=== PATIENT | male | born 1950 | race Caucasian/White ===

== ENCOUNTER 2016-03-24 17:57 | Inpatient (IN) | payer OTHER, MEDICARE ==
[~2016-03-24] VITALS: Ht 182.9 cm; Wt 90.2 kg
[2016-03-24 18:20] VITALS: BP 151/92; PULSE 78; TEMP 36.3; O2SAT 99; BMI 26.6
[2016-03-24] MEDS ORDERED: LEVO88TA3 PO (19:57)
[2016-03-24] MEDS ORDERED: TADA10TA PO (19:57)
[2016-03-24] MEDS ORDERED: MELATAB2 PO (19:57)
[2016-03-24] MEDS ORDERED: SIMV80TA5 PO (19:57)
[2016-03-24] MEDS ORDERED: ATV/1 PO (19:57)
[2016-03-24] MEDS ORDERED: HYDR-5688 PO (19:57)
[2016-03-24] MEDS ORDERED: MoRPHine SULFATE 2 MG/ML CARP IV PRN (20:00)
[2016-03-24] MEDS ORDERED: ALUMINUM/MAGNESIUM/SIMETH (MAALOX MAX) 30 ML UDC PO PRN (20:00)
[2016-03-24] MEDS ORDERED: ACETAMINOPHEN 325 MG TAB PO PRN (20:00)
[2016-03-24] MEDS ORDERED: PATIENT'S ALLERGY INFO NEEDS ENTERED SCH (20:15)
[2016-03-24 20:29] VITALS: BP 149/93; PULSE 74; TEMP 36.7; O2SAT 100
[2016-03-24] MEDS: OXYCODONE/ACETAMINOPHEN 5-325 TAB PO PRN (21:13)
[2016-03-24] MEDS: SIMVASTATIN 80 MG TAB PO SCH (21:27)
--- NOTE | 2016-03-24 22:05 | History and Physical ---
History & Physical Date & Time of Service: Mar 24, 2016 at 21:46 Chief Complaint: Lung Mass With Bone Met Primary Care Physician: Blas Calero D.O. History of Present Illness Source: patient, family, clinic records, hospital records This is a 66 year old male with PMH of HLD, hypothyroidism was sent over by Dr. Scales, oncology, for evaluation of a lung mass and likely metastatic disease to the bone. Patient had been seeing orthopedic surgery regarding clavicular and shoulder pain; had a CT scan performed showing lytic bone lesions of the left clavicle; CT chest was later performed showing a 3.2 x 1.8 cm left upper lobe spiculated mass as well as lytic lesions of multiple thoracic levels; bone scan performed showing increasing activity at the thoracolumbar and clavicular regions. Patient was sent over to get a bronchoscopy and tissue diagnosis as well as evaluation for his lytic lesions and T10 compression fracture. Patient states his main symptoms are the back pain, clavicular pain and he now noticed shallower breathing. Denies chest pain Social History Smoking Status: Unknown if Ever Smoked Multi-Drug Resistant Organisms History of MDRO: No Allergies Coded Allergies: No Known Allergies (Unverified , 03/24/16) Home Medications Scheduled Levothyroxine Sodium (Levothyroxine Sodium), 1 TAB PO DAILY Lorazepam (Ativan), 1 MG PO Q6H Melatonin (Melatonin Maximum Strengt), 1 TAB PO HS Simvastatin (Zocor), 1 TAB PO DAILY Tadalafil (Cialis), 10 MG PO UD Scheduled PRN Hydrocodone/Acetaminophen 5MG/325MG ([place] 5MG/325MG), 1 TABLET PO Q6 PRN for Pain Review of Systems Constitutional: No chills, No fatigue, No fever, No sweats, No weakness, No weight loss Eyes: No worsening of vision ENT: No hearing loss Respiratory: + cough, + dyspnea at rest, + shortness of breath, No hemoptysis, No sputum, No wheezing Cardiovascular: No chest pain Abdomen: No diarrhea, No nausea, No pain, No vomiting Musculoskeletal: + joint pain (back, clavicles), + muscle pain Genitourinary - Male: No dysuria, No hematuria, No urinary frequency, No urinary urgency Neurologic: No balance problems, No memory loss, No numbness/tingling, No vertigo Psychiatric: No depression symptoms Hematologic / Lymphatic: No abnormal bleeding/bruising Integumentary: No rash Allergic / Immunologic: No environmental allergies, No seasonal allergies Physical Exam Vital Signs Date Time Temp Pulse Resp B/P Pulse Ox O2 Delivery O2 Flow Rate FiO2 03/24/16 20:29 36.7 74 20 149/93 100 Room Air 03/24/16 18:20 36.3 78 20 151/92 99 Room Air General Appearance: + mild distress Head: normocephalic, atraumatic Eyes: normal inspection ENT: hearing grossly normal Respiratory/Chest: lungs clear, + respiratory distress (mild respiratory distress), + accessory muscle use Cardiovascular: regular rate, rhythm, no edema, no murmur Abdomen/GI: normal bowel sounds, non tender, soft Extremities/Musculoskelatal: normal inspection, no calf tenderness, no pedal edema Neurologic/Psych: no motor/sensory deficits, alert, oriented x 3, + pertinent finding (slightly anxious) Skin: normal color Lymphatic: no adenopathy Diagnostics Laboratory Results Results Past 24 Hours Test 03/24/16 19:58 Range/Units Diagnostic Radiology CT scan done as outpatient showing spiculated mass of left upper lobe and lytics lesions of the thoracic spine. Impression Assessment and Plan This is a 66 year old male with PMH of HLD, hypothyroidism was sent over by Dr. Scales, oncology, for evaluation of a lung mass and likely metastatic disease to the bone. Spiculated Left Upper Lung Lobe Mass -->patient with CT done for clavicular/shoulder pain, incidental finding -->CT chest done as outpatient shows this mass -->sent over by oncology for bronch and tissue biopsy/diagnosis -->CTS consulted - Dr. Berg for further evaluation -->O2 as needed, as patient had some accessory muscle use/respiratory distress - saturating well Thoracic Spine Lytic Lesions T10 Compression Fracture -->likely metastatic from above -->will consult orthopedic surgery, Dr. Arzate -->morphine PRN for pain -->hold off on MRI until evaluated by ortho HLD -->continue statin Hypothyroidism -->cont. synthroid DVT ppx -->SCDs - poss. bronchoscopy in AM FULL CODE Advanced Directives Existing Advance Directive: Yes Existing Living Will: Yes Existing Power of Frame Repairer: Yes VTE Prophylaxis VTE Risk Assessment Done? Y/N: Yes Risk Level: High
[2016-03-24 22:09] LABS: BASO % 0.3 %; BASO ABS # 0.02 K/uL (0-0.2); COMPLETE YES; EOS % 1.6 %; HEMATOCRIT 37.4 % (42-52); IG% 0.1 %; MEAN CELL VOLUME 82.6 fL (80-100); MEAN CORPUSCULAR HEMOGLOBIN 28.7 pg (25-34); MEAN CORPUSCULAR HGB CONC 34.8 g/dl (32-36); MEAN PLATELET VOLUME 9.6 fL (7.4-10.4); MONO % 8.7 %; NEUT % 67.3 %; PLATELET COUNT 274 K/uL (130-400); RED BLOOD COUNT 4.53 M/uL (4.7-6.1); WHITE BLOOD COUNT 6.82 K/uL (4.8-10.8)
[2016-03-24 22:20] LABS: PARTIAL THROMBOPLASTIN RATIO 1.1; PROTHROMBIN TIME (PATIENT) 11.1 SECONDS (9.0-12.0)
[2016-03-24 22:31] LABS: BUN/CREATININE RATIO 18.4 (10-20); CALCIUM 9.4 mg/dl (8.5-10.1); CREATININE 1.1 mg/dl (0.60-1.40); MAGNESIUM 2.1 mg/dl (1.8-2.4); POTASSIUM 3.6 mmol/L (3.5-5.1)
[2016-03-24 22:34] LABS: ALB/GLOB RATIO 0.8 (0.9-2)
[2016-03-24] MEDS: LORAZEPAM 1 MG TAB PO PRN (23:05)
[2016-03-25] VITALS (8 sets, daily range): BP systolic 127–152; BP diastolic 80–88; PULSE 66–84; TEMP 36.4–36.9; O2SAT 95–100
[2016-03-25] MEDS ORDERED: KETOROLAC TROMETHAMINE 15 MG/ML VIAL IV. STA (00:36)
[2016-03-25] MEDS: LEVOTHYROXINE 88 MCG TAB PO SCH (05:58)
[2016-03-25 06:06] LABS: HEMATOCRIT 35.5 % (42-52); MEAN CELL VOLUME 84.3 fL (80-100); MEAN CORPUSCULAR HEMOGLOBIN 28.5 pg (25-34); MEAN CORPUSCULAR HGB CONC 33.8 g/dl (32-36); MEAN PLATELET VOLUME 9.8 fL (7.4-10.4); PLATELET COUNT 263 K/uL (130-400); RED BLOOD COUNT 4.21 M/uL (4.7-6.1); WHITE BLOOD COUNT 5.97 K/uL (4.8-10.8)
[2016-03-25 06:49] LABS: BUN/CREATININE RATIO 16.2 (10-20); CALCIUM 9.2 mg/dl (8.5-10.1); CREATININE 1.1 mg/dl (0.60-1.40); MAGNESIUM 2.2 mg/dl (1.8-2.4); POTASSIUM 3.9 mmol/L (3.5-5.1)
[2016-03-25 06:59] LABS: THYROID STIMULATING HORMONE 4.25 uIu/ml (0.300-4.500)
[2016-03-25] MEDS: MoRPHine SULFATE 4 MG/ML 1 ML CARP\\VIAL IV PRN ×3 (08:39→21:59)
--- NOTE | 2016-03-25 10:12 | Clinical Documentation Query ---
CLINICAL DOCUMENTATION QUERY Ms. 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 Clinical Indicators: 66 yo male presenting with CT results showing spiculated mass of left upper lobe and lytics lesions of the thoracic spine. Treatment: consult thoracic surgery and orthopedics, O2 support prn, CT and MRI of thoracic spine, Risk Factors: age, smoking history is unknown Please clarify and document your clinical opinion in the progress notes and discharge summary. Terms such as "probable", "suspected", "likely", "questionable", "possible", or "still to be ruled out" are acceptable. IF IN AGREEMENT, YOU MUST DOCUMENT ABOVE DIAGNOSTIC STATEMENT IN DAILY PROGRESS NOTES AND DISCHARGE SUMMARY. This document is not part of the patient's record. Thank You, Jackie Moscoso RN [phone]
--- NOTE | 2016-03-25 10:15 | Clinical Documentation Query ---
CLINICAL DOCUMENTATION QUERY Dr. 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 Clinical Indicators: 66 yo male presenting with CT results showing spiculated mass of left upper lobe and lytics lesions of the thoracic spine. Treatment: consult thoracic surgery and orthopedics, O2 support prn, CT and MRI of thoracic spine, Risk Factors: age, smoking history is unknown Please clarify and document your clinical opinion in the progress notes and discharge summary. Terms such as "probable", "suspected", "likely", "questionable", "possible", or "still to be ruled out" are acceptable. IF IN AGREEMENT, YOU MUST DOCUMENT ABOVE DIAGNOSTIC STATEMENT IN DAILY PROGRESS NOTES AND DISCHARGE SUMMARY. This document is not part of the patient's record. Thank You, Jackie Moscoso RN [phone]
[2016-03-25] MEDS ORDERED: LORAZEPAM 2 MG/ML 1 ML VIAL IV SCH (10:30)
[2016-03-25] MEDS ORDERED: OPTIRAY 320 IV PRN (11:00)
[2016-03-25] MEDS ORDERED: LORAZEPAM INJ 0.5 MG in SYRINGE 0.75 ML IV SCH (11:45)
--- NOTE | 2016-03-25 12:39 | SURGICAL CONSULTATION ---
DATE OF CONSULTATION: 03/25/2016 REASON FOR CONSULTATION: Left upper lobe mass. HISTORY OF PRESENT ILLNESS: Jose David Urban is a 66-year-old male who has a history of cigarette smoking in the distant past, who was working out this past summer and he noted pain in his left shoulder. This waxed and waned until he finally ended up getting a CT scan when he sought attention from Dr. Brant Comer. This showed a lytic lesion and he is being worked up. He has become a bit more short of breath and was admitted to the hospital by his oncologist, Dr. Jac Scales. The patient has a left upper lobe mass noted on CT scan without mediastinal adenopathy, but has diffuse bony lesions suggestive of metastatic disease. In addition, his T4 vertebral body is markedly involved to the fact that it may be unstable. I had a long talk with the patient and his here at the bedside this morning. The patient has had no weight loss. He has had no hemoptysis, no productive cough. He has had no night sweats. He does have diffuse bone pain. He is normally followed by Dr. Blas Calero. PAST MEDICAL HISTORY: 1. History of cigarette smoking in the past, but quit many years ago. 2. Hypothyroidism. 3. Hypercholesterolemia. PAST SURGICAL HISTORY: 1. Left inguinal hernia repair 2008. 2. Bilateral cataract extractions with lens implants 2010. 3. Excision of left flank lipoma 2 weeks ago. MEDICATIONS: (AT HOME): 1. Synthroid. 2. Cialis. 3. Zocor. 4. Melatonin. 5. Hydrocodone. ALLERGIES: Known drug allergies. SOCIAL HISTORY: The patient is originally from [place], [place]. He worked in [employer] and then got a degree from [employer], and then worked in several different stokes, all white collar. 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 The patient lives with his . He does occasionally smoke marijuana. He has not smoked cigarettes for many years. FAMILY MEDICAL HISTORY: The patient has 3 children. He had a 16-year-old daughter who was tragically killed while jogging along a street down in [place] in 1994. The other children are healthy. REVIEW OF SYSTEMS: The patient's weight has been stable. He has had no night sweats. He really does not have a productive cough, although he has noted some mild increased dyspnea. His big complaint is pain in his back and pain along his right side. He has pain in his left shoulder and across the sternum. He denies GI or difficulties. He does take Cialis for erectile dysfunction. He has had no hemoptysis, hematochezia or hemetemesis. Denies nausea or vomiting. He has had no skin breakdown. He has had no visual or auditory symptoms. He has no joint effusions or peripheral edema. PHYSICAL EXAMINATION: GENERAL: This is a well-developed, well-nourished white male who stands 6 feet tall and weighs 194 pounds. HEENT: His extraocular movements are intact. His pupils are equal, round and reactive. Sclerae are anicteric. He has no nasolabial flattening. Teeth are in good repair. His tongue is midline. NECK: He has no supraclavicular or cervical lymphadenopathy, neck vein distention, thyromegaly or carotid bruits. I detect no axillary adenopathy, although he is tender in his right axilla. LUNGS: Grossly clear. He has no wheezing or rales. HEART: Has a regular rate and rhythm of his heart. ABDOMEN: Soft, nontender. He has a well-healed left inguinal hernia incision. It appears that he has a right lower quadrant incision also. He has no evidence of hernia. He has good femoral pulses. He has good peripheral pulses. He has no joint effusions. He has no peripheral edema. NEUROLOGIC: He is completely intact. He has no focal deficits. Cranial nerves II-XII are intact. He is alert and oriented. Data reviewed and CT scan and he has multiple lytic lesions in the left clavicle, sternum, ribs and spine, and a spiculated mass in his left upper lobe. ASSESSMENT AND PLAN: Involvement of T4 with probable metastatic disease. He also has a spiculated mass in his left upper lobe. We need a tissue diagnosis in order to treat him. I am going to offer him a navigational bronchoscopy tomorrow on 03/26/2016. It is important to note he really has no lymphadenopathy, which is a bit unusual for metastatic lung cancer. I will discuss this case with Dr. Arzate, who will be seeing him from a spine surgery standpoint. ARMANDO
[2016-03-25] MEDS: OXYCODONE/ACETAMINOPHEN 5-325 TAB PO PRN ×2 (14:33→19:46)
--- NOTE | 2016-03-25 15:51 | Progress Note ---
Internal Med Progress Note Date of Service: Mar 25, 2016. Provider Documentation: SUBJECTIVE: Patient is seen and examined at bedside. He complains of back pain in the thoracic region. Also states having intermittent cough and SOB on exertion. Denies any chest pain, fever, chills. OBJECTIVE: Vital Signs-as noted below General Appearance: Moderately built and nourished. Anxious Head: normocephalic, atraumatic Eyes: normal inspection ENT: hearing grossly normal Respiratory/Chest: lungs clear to auscultation, no accessory muscle use Cardiovascular: regular rate, rhythm, no edema, no murmur Abdomen/GI: normal bowel sounds, non tender, soft Extremities/Musculoskelatal: normal inspection, no calf tenderness, no pedal edema Neurologic/Psych: no motor/sensory deficits, alert, oriented x 3, anxious Spine: Mild tenderness in thoracic region Skin: normal color Lymphatic: no adenopathy Lab data as noted below. ASSESSMENT & PLAN: Patient is a 66 Yr old male with PMH of Hyperlipidemia, hypothyroidism, former smoker was a direct admit from oncology office (Dr.Nilesh Scales) for evaluation of lung mass and likely metastatic disease to the bone. Patient was evaluated by orthopedic surgery for clavicular and shoulder pain as outpatient and CT scan performed showing lytic bone lesions of the left clavicle and eft upper lobe spiculated mass with lytic lesions of multiple thoracic levels. Bone scan showed findings suggestive of metastatic bone disease. Patient complained of back and clavicular pain associated with shallow breathing. Patient denied any weight loss, change in appetite, hemoptysis, productive cough, night sweats but did complain of diffuse bone pain. 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: Former smoker quit at age of 23 CT scan shows multiple lytic lesions in left clavicle, sternum, ribs and spine Also left upper lobe lung mass seen severe central canal narrowing at T4 level Planned for bronchoscopy tomorrow Pain Control, Oxygen support CT surgery, Spine Surgery and radiation oncology consulted Follow up MRI thoracic spine Hyperlipidemia Continue statin Hypothyroidism Continue Levothyroxine DVT px SCDs for now Vital Signs: Date Time Temp Pulse Resp B/P Pulse Ox O2 Delivery O2 Flow Rate FiO2 03/25/16 12:11 36.5 84 20 129/85 100 Room Air 03/25/16 08:30 95 Room Air 03/25/16 07:47 36.6 73 18 131/84 95 Room Air 03/25/16 04:35 36.6 74 20 127/80 99 Room Air 03/25/16 01:13 Room Air 03/25/16 00:39 36.9 66 18 143/81 97 Room Air 03/25/16 00:00 Room Air 03/24/16 20:29 36.7 74 20 149/93 100 Room Air 03/24/16 18:20 36.3 78 20 151/92 99 Room Air Lab Results: Results Past 24 Hours Test 03/24/16 21:58 03/25/16 05:20 Range/Units White Blood Count 6.82 5.97 4.8-10.8 K/uL Red Blood Count 4.53 4.21 4.7-6.1 M/uL Hemoglobin 13.0 12.0 14.0-18.0 g/dL Hematocrit 37.4 35.5 42-52 % Mean Corpuscular Volume 82.6 84.3 80-100 fL Mean Corpuscular Hemoglobin 28.7 28.5 25-34 pg Mean Corpuscular Hemoglobin Concent 34.8 33.8 32-36 g/dl Platelet Count 274 263 130-400 K/uL Mean Platelet Volume 9.6 9.8 7.4-10.4 fL Neutrophils (%) (Auto) 67.3 % Lymphocytes (%) (Auto) 22.0 % Monocytes (%) (Auto) 8.7 % Eosinophils (%) (Auto) 1.6 % Basophils (%) (Auto) 0.3 % Neutrophils # (Auto) 4.59 1.4-6.5 K/uL Lymphocytes # (Auto) 1.50 1.2-3.4 K/uL Monocytes # (Auto) 0.59 0.11-0.59 K/uL Eosinophils # (Auto) 0.11 0-0.5 K/uL Basophils # (Auto) 0.02 0-0.2 K/uL RDW Standard Deviation 41.9 43.2 36.4-46.3 fL RDW Coefficient of Variation 13.9 14.0 11.5-14.5 % Immature Granulocyte % (Auto) 0.1 % Immature Granulocyte # (Auto) 0.01 0.00-0.02 K/uL Prothrombin Time 11.1 9.0-12.0 SECONDS Prothromb Time International Ratio 1.0 0.9-1.1 Activated Partial Thromboplast Time 27.5 21.0-31.0 SECONDS Partial Thromboplastin Ratio 1.1 Sodium Level 138 140 136-145 mmol/L Potassium Level 3.6 3.9 3.5-5.1 mmol/L Chloride Level 103 104 98-107 mmol/L Carbon Dioxide Level 24 28 21-32 mmol/L Anion Gap 11.0 8.0 3-11 mmol/L Blood Urea Nitrogen 20 18 7-18 mg/dl Creatinine 1.10 1.10 0.60-1.40 mg/dl Est Creatinine Clear Calc Drug Dose 23.9 23.9 ml/min Estimated GFR () 79.5 79.5 Estimated GFR (Non- 68.6 68.6 BUN/Creatinine Ratio 18.4 16.2 10-20 Random Glucose 137 84 70-99 mg/dl Calcium Level 9.4 9.2 8.5-10.1 mg/dl Magnesium Level 2.1 2.2 1.8-2.4 mg/dl Total Bilirubin 0.8 0.2-1 mg/dl Aspartate Amino Transf (AST/SGOT) 46 15-37 U/L Alanine Aminotransferase (ALT/SGPT) 35 12-78 U/L Alkaline Phosphatase 294 45-117 U/L Total Protein 7.9 6.4-8.2 gm/dl Albumin 3.4 3.4-5.0 gm/dl Globulin 4.5 2.5-4.0 gm/dl Albumin/Globulin Ratio 0.8 0.9-2 Thyroid Stimulating Hormone (TSH) 4.250 0.300-4.500 uIu/ml
--- NOTE | 2016-03-25 15:57 | Anesthesiology Progress Note ---
Anesthesia Progress Note Date of Service Mar 25, 2016. Progress Notes This is a 66 y/o w male w/lung tumor and bone metastases presenting for a navigational bronchoscopy and biopsy.PMHx is also sig. for Hyperlipidemia,anemia ,GIL/SOB andT10 compression Fx presumably secondary to bone metastases.Pt quit smoking cigarettes in 1972.Discussed anesthesia w/ pt ,risks vs benefits,all questions answered. Informed consent obtained.
[2016-03-25] MEDS: DOCUSATE SODIUM 100 MG CAP PO PRN ×2 (16:00→23:59)
--- NOTE | 2016-03-25 16:42 | Radiation Oncology Consult ---
Radiation Oncology Consult Date / Reason Mar 25, 2016. Physicians Primary Care Provider: Dr. Blas Calero Medical Oncologist: Dr. Jac Scales Radiation Oncologist: Dr. Vipin Scales Surgeon: Dr. Lino Berg Other Providers: Dr. Griffiths - Neurosurgery ([facility] [place]) Dr. Arzate - Orthopedic Surgery Diagnosis (1) Lung mass Stage: IV Permanent Comment: Probable metastatic lung cancer, biopsy pending Last Edited By: Vipin Scales on Mar 25, 2016 14:55 History of Present Illness I am seeing Mr. Urban in consultation at the request of Dr. Yo and BEAN Cortez. The patient's was present at bedside. ECOG PS: 0 Mr. Urban is a pleasant 66-year-old gentleman with a remote smoking history who recently presented with upper back pain. The patient was initially evaluated by orthopedic surgery and was undergoing physical therapy. Eventually the back pain was getting significantly worse in the patient did have imaging studies which did reveal a pulmonary mass and potential bony metastatic disease in the thoracic spine (as per patient, imaging studies and reports unavailable at the time of consultation). The patient was going to have the workup completed as an outpatient however he was recommended to proceed to the emergency room at [facility]. The patient did have a CT chest, abdomen, pelvis scan and a bone scan on 03/19/2016 and the results revealed: Chest - IMPRESSION: 1. A 3.2 x 1.8 cm mass within the left lung apex consistent with a primary bronchus malignancy. There are few additional subcentimeter bilateral upper lobe nodules which may represent metastases. 2. Multiple tiny scattered subpleural nodules seen throughout the lungs measuring between 1 and 2 mm. These are indeterminate and could be related to a chronic interstitial process rather than metastatic disease. This bears watching on future examinations. 3. Extensive lytic lesions throughout the visualized osseous structures as described above consistent with metastatic disease. This includes multiple lytic soft tissue masses within the spine with associated soft tissue epidural extension at the T4, T5 and T8 levels.. At the T4 level, there is a 4.2 x 3.8 cm mass along the right side of the vertebral body which results in moderate to severe central canal narrowing. This likely results in cord compression. 4. A thrombosed left upper lobe segmental pulmonary artery which extends to the mass. This could represent bland thrombus, tumor thrombus, or less likely a pulmonary embolism. 5. A 6 x 2 cm soft tissue mass within the subcutaneous fat of the left lateral chest wall. This contains a small focus of gas and may represent a recently biopsied chest wall lesion. Clinical correlation recommended. Abdomen/Pelvis - IMPRESSION: 1. Findings of diffuse bony metastatic disease 2. Several small abdominal and pelvic nodes none of which exceed 7 mm of uncertain significance 3. Mild wall thickening of the cecum and proximal ascending colon with colonoscopy suggested. 4. 2.2 cm left hepatic lobe cyst. Bone Scan - IMPRESSION: Diffuse bony metastatic change. The patient is scheduled to undergo a bronchoscopy with biopsy by Dr. Berg to confirm the diagnosis of lung cancer. The patient will then subsequently be transferred to [facility] and will be taken to the operating room by Dr. Griffiths for a surgical decompression and fixation of the thoracic spine. We were asked to evaluate the patient for consideration of adjuvant radiation therapy to the spine following surgery. Overall, the patient is doing relatively okay. He does have significant upper thoracic spine pain. He denies any significant focal neurologic deficits at this point. He denies any headaches. He has no other complaints. Social History Smoking Status: Never Smoker Hx Tobacco Use In Past Year?: No Do You Dip or Chew Tobacco: No Hx Alcohol Use: Yes (rarely, wine) Hx Substance Use : No Allergies Coded Allergies: No Known Allergies (Unverified , 03/24/16) Home Medications Scheduled Levothyroxine Sodium (Levothyroxine Sodium), 1 TAB PO DAILY Lorazepam (Ativan), 1 MG PO Q6H Melatonin (Melatonin Maximum Strengt), 1 TAB PO HS Simvastatin (Zocor), 1 TAB PO DAILY Tadalafil (Cialis), 10 MG PO UD Scheduled PRN Hydrocodone/Acetaminophen 5MG/325MG ([place] 5MG/325MG), 1 TABLET PO Q6 PRN for Pain Review of Systems Ear/Hearing: Ear Side: Bilateral Hearing Ability: Normal Hearing Aid: None Edema: Present?: No Pain Management Side: Bilateral Patient Preferred Pain Scale: 0 - 10 Initial Pain Intensity: 6.0 Pain Description: Pressure, Aching, Throbbing Physical Exam Height: 6 (Feet) (Inches) 182.9 (Centimeters) 1.82 (Meters) Weight: 194 (Pounds) 0.1 (Ounces) 26.300 (Kilograms) 64768.000 (Grams) Date Time Temp Pulse Resp B/P Pulse Ox O2 Delivery O2 Flow Rate FiO2 03/25/16 12:11 36.5 84 20 129/85 100 Room Air 03/25/16 08:30 95 Room Air 03/25/16 07:47 36.6 73 18 131/84 95 Room Air 03/25/16 04:35 36.6 74 20 127/80 99 Room Air 03/25/16 01:13 Room Air 03/25/16 00:39 36.9 66 18 143/81 97 Room Air 03/25/16 00:00 Room Air 03/24/16 20:29 36.7 74 20 149/93 100 Room Air 03/24/16 18:20 36.3 78 20 151/92 99 Room Air General Appearance: WD/WN, no apparent distress Head: normocephalic Eyes: normal inspection ENT: normal ENT inspection Neck: supple, no adenopathy Respiratory/Chest: chest non-tender, lungs clear, normal breath sounds, no respiratory distress Cardiovascular: regular rate, rhythm, no edema, no gallop, no JVD Abdomen/GI: normal bowel sounds, non tender, soft, no organomegaly, no pulsatile mass Extremities: normal inspection, no calf tenderness, normal capillary refill, no pedal edema, normal range of motion Neurologic/Psych: 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 Imaging Imaging studies: were reviewed Imaging Comments Results included in the HPI Assessment & Recommendations Mr. Urban is a a 66-year-old gentleman with a remote smoking history who now presents with a primary lung mass and bony metastatic disease; specifically, the patient has metastatic disease involving the thoracic spine that is going to lead to spinal cord compression. The patient will undergo a bronchoscopy and biopsy by Dr. Berg today to confirm the diagnosis of metastatic lung cancer. Subsequently, the patient will be transferred to [facility] and will undergo a surgical decompression and spinal fixation of the thoracic spine by Dr. Griffiths. The patient will then be seen by medical oncology, Dr. Jac Scales. We were asked to evaluate the patient for consideration of adjuvant radiation therapy to the thoracic spine following surgical decompression. In general, we would recommend adjuvant radiation therapy to the thoracic spine in order to treat microscopic residual disease that is not removed at the time of surgery; we did explain to the patient that there has been previous studies showing a survival benefit to the combination of both surgical resection and adjuvant radiation therapy. We did also further discuss the standard management for presumed metastatic lung cancer which includes systemic chemotherapy underneath the supervision of Dr. Jac Scales. I did also briefly discussed with the patient that we could potentially treat other areas that are causing him symptomatic pain or if there is an impending pathologic fracture. The patient would be in agreement to this treatment plan and we will wait for a referral back toward department when the patient has recovered from surgery from either neurosurgery at [facility] or from medical oncology through Dr. Jac Scales. We have explained the indications, alternatives, benefits, risks and side effects of radiation therapy. We have explained the most common side effects including but are not limited to skin erythema, skin break down, hair loss, fibrosis, adhesion development, radiation pneumonitis, rib and bone fracture, heart failure and heart disease, esophagitis, bowel obstruction, urinary symptoms, thyroid disorders, mucositis, nauesea, vomiting, diarrhea, anemia, fatigue and development of secondary malignancy. We also discussed that male patients may have issues with erections (potency) and infertility issues depending on their age and area of treatment. We have explained the CT simulation process and treatment planning. We explained what to expect before, during and after treatment on a regular basis. The patient understands and would be willing to consent to treatment. The patient and family had multiple questions which were answered to their full satisfaction. Thank you for allowing us to participate in the care of this patient. This chart was completed in part utilizing [employer] Speech Voice Recognition software. Attempts were made to minimize the grammatical errors, random word insertions, pronoun errors and incomplete sentences. Any formal questions or concerns about the content, text or information contained within the body of this dictation should be directly addressed to the provider for clarification. Vipin Scales MD Department of Radiation Oncology [facility] Total Time In Consultation I spent 30 minutes examining and counseling the patient. I spent 15 minutes completing this note. Copy To Steven Griffiths M.D.; Adriana Saucedo ., BEAN; Jac Scales M.D.; Blas Calero D.OSd; Lino Berg,
--- NOTE | 2016-03-25 16:46 | DIAGNOSTIC IMAGING REPORT ---
CT THORACIC SPINE WITH CT DOSE: 959.97 mGy.cm CLINICAL HISTORY: lung mass with angelica mets TECHNIQUE: Helical images were acquired in the transverse plane. The study was performed following administration of 120 cc of Optiray 320. Sagittal and coronal reformatted images were acquired COMPARISON STUDY: Whole-body bone scan dated 03/19/2016, CT scan of the chest dated 03/19/2016 FINDINGS: There is a 3 cm spiculated left upper lobe pulmonary mass, consistent with a primary bronchogenic carcinoma. There is extensive lytic bone disease, with involvement of every thoracic vertebral body or posterior elements. There is also involvement of the L1 vertebral body. At the T4 level, there is extensive destruction of the posterior vertebral body posterior elements and right lateral mass. There is extensive epidural tumor with secondary cord compression. There is epidural disease with canal narrowing at the T5 level as well. At the T8 level, there is mild anterior epidural tumor. There are innumerable bilateral tiny pulmonary nodules IMPRESSION: 1. 3 cm spiculated left upper lobe pulmonary mass, consistent with a lung carcinoma 2. Extensive lytic bony metastasis involving every thoracic vertebra, as well as the L1 vertebra. 3. Extensive epidural disease at the L4-L5 level with secondary cord compression. The L4 mass measures 4.6 x 3.8 cm. 4. Mild anterior vertebral disease the T8 level. 5. Innumerable bilateral tiny pulmonary nodules Electronically signed by: Tc Alvarez M.D. 03/25/2016 4:44 PM Dictated Date/Time: 03/25/2016 4:34 PM
--- NOTE | 2016-03-25 19:25 | DIAGNOSTIC IMAGING REPORT ---
MRI THE THORACIC SPINE WITHOUT A WITH GADOLINIUM CLINICAL HISTORY: Lung mass with bony metastasis COMPARISON STUDY: CT scan dated 03/25/2016 FINDINGS: Imaging was performed in the sagittal and axial planes before and after the administration of 3 cc of intravenous Gadavist. There are geographic areas of marrow replacement involving every thoracic vertebra, as well as the L1-L5 vertebra, and S1 and S3 vertebra.. At the T4-5 level, there is epidural extension of neoplasm. The tumor measures approximately 4.3 x 3.6 cm. There is secondary canal narrowing. The residual canal measures 11 x 10 mm. There is also mild spread of neoplasm into the anterior epidural space at the T8 level. IMPRESSION: 1. Extensive metastatic disease 2. Large metastatic deposit at the T3 and T4 levels with epidural extension and secondary spinal canal narrowing 3. Mild epidural extension at the T8 level. 4. 3 cm left upper lobe pulmonary mass consistent with neoplasm Electronically signed by: Tc Alvarez M.D. 03/25/2016 7:24 PM Dictated Date/Time: 03/25/2016 7:18 PM
[2016-03-25] MEDS: SIMVASTATIN 80 MG TAB PO SCH (19:46)
[2016-03-26] VITALS (8 sets, daily range): BP systolic 113–142; BP diastolic 74–88; PULSE 67–88; TEMP 36.3–36.7; O2SAT 94–100; BMI 27.0
[2016-03-26] MEDS: LORAZEPAM 1 MG TAB PO PRN
[2016-03-26] MEDS: ONDANSETRON INJ 2 MG/ML 2 ML VIAL IV PRN ×2 (00:59→08:53)
[2016-03-26] MEDS: OXYCODONE/ACETAMINOPHEN 5-325 TAB PO PRN (01:33)
[2016-03-26] MEDS: LEVOTHYROXINE 88 MCG TAB PO SCH (06:09)
[2016-03-26 06:16] LABS: BASO % 0.4 %; BASO ABS # 0.02 K/uL (0-0.2); COMPLETE YES; EOS % 2.5 %; HEMATOCRIT 35.4 % (42-52); LYMPH % 25.8 %; LYMPH ABS # 1.36 K/uL (1.2-3.4); MEAN CELL VOLUME 83.5 fL (80-100); MEAN CORPUSCULAR HEMOGLOBIN 28.5 pg (25-34); MEAN CORPUSCULAR HGB CONC 34.2 g/dl (32-36); MEAN PLATELET VOLUME 9.8 fL (7.4-10.4); MONO % 13.3 %; PLATELET COUNT 270 K/uL (130-400); RED BLOOD COUNT 4.24 M/uL (4.7-6.1); WHITE BLOOD COUNT 5.28 K/uL (4.8-10.8)
[2016-03-26 06:43] LABS: BUN/CREATININE RATIO 17.3 (10-20); CALCIUM 9.2 mg/dl (8.5-10.1); CREATININE 1.1 mg/dl (0.60-1.40); POTASSIUM 4.2 mmol/L (3.5-5.1)
[2016-03-26] MEDS ORDERED: KETOROLAC TROMETHAMINE 15 MG/ML VIAL ONE (09:25)
[2016-03-26] MEDS ORDERED: NURSING VERBAL MED ORDER ONE (09:30)
[2016-03-26] MEDS ORDERED: PROPOFOL IV EMULSION 10 MG/ML 20 ML VIAL IV ONE (15:06)
[2016-03-26] MEDS ORDERED: FENTANYL CITRATE INJ 50 MCG/1 ML 2 ML VIAL ONE (15:06)
[2016-03-26] MEDS ORDERED: ONDANSETRON INJ 2 MG/ML 2 ML VIAL ONE (15:06)
[2016-03-26] MEDS ORDERED: NEOSTIGMINE METHYLSULFATE 5 MG/5 ML SYR ONE (15:06)
[2016-03-26] MEDS ORDERED: GLYCOPYRROLATE INJ 0.2 MG/ML VIAL ONE ×2 (15:06→16:13)
[2016-03-26] MEDS ORDERED: DEXAMETHASONE SOD INJ 4 MG/ML VIAL ONE ×2 (15:06→16:44)
[2016-03-26] MEDS ORDERED: MIDAZOLAM HCL 1 MG/ML 2ML VIAL ONE ×2 (15:06→17:58)
[2016-03-26] MEDS ORDERED: ROCURONIUM BROMIDE 10 MG/ML 5 ML VIAL ONE (15:06)
[2016-03-26] MEDS ORDERED: LIDOCAINE HCL 2% 2 ML VIAL (20MG/ML) ONE (15:06)
--- NOTE | 2016-03-26 15:26 | History & Physical Bridge Note ---
H&P Re-Evaluation Bridge Note: I have examined the patient, reviewed the History & Physical and in the interval since the performance of the History & Physical I have noted the following changes of clinical significance: No changes noted
--- NOTE | 2016-03-26 15:39 | Progress Note ---
Internal Med Progress Note Date of Service: Mar 26, 2016. Provider Documentation: SUBJECTIVE: Patient is seen and examined at bedside. States his back pain is controlled. Denies any cough, SOB,chest pain. OBJECTIVE: Vital Signs-as noted below General Appearance: Moderately built and nourished. Head: normocephalic, atraumatic Eyes: normal inspection ENT: hearing grossly normal Respiratory/Chest: lungs clear to auscultation, no accessory muscle use Cardiovascular: regular rate, rhythm, no edema, no murmur Abdomen/GI: normal bowel sounds, non tender, soft Extremities/Musculoskelatal: normal inspection, no calf tenderness, no pedal edema Neurologic/Psych: no motor/sensory deficits, alert, oriented x 3, anxious Spine: Mild tenderness in thoracic region Skin: normal color Lymphatic: no adenopathy Lab data as noted below. ASSESSMENT & PLAN: Patient is a 66 Yr old male with PMH of Hyperlipidemia, hypothyroidism, former smoker was a direct admit from oncology office (Dr.Nilesh Scales) for evaluation of lung mass and likely metastatic disease to the bone. Patient was evaluated by orthopedic surgery for clavicular and shoulder pain as outpatient and CT scan performed showing lytic bone lesions of the left clavicle and eft upper lobe spiculated mass with lytic lesions of multiple thoracic levels. Bone scan showed findings suggestive of metastatic bone disease. Patient complained of back and clavicular pain associated with shallow breathing. Patient denied any weight loss, change in appetite, hemoptysis, productive cough, night sweats but did complain of diffuse bone pain. 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: Former smoker quit at age of 23 CT scan shows multiple lytic lesions in left clavicle, sternum, ribs and spine Also left upper lobe lung mass seen severe central canal narrowing at T4 level Planned for bronchoscopy today Pain Control, Oxygen support CT surgery, Spine Surgery and radiation oncology consulted MRI thoracic spine: Extensive metastatic disease, Large metastatic deposit at T3-T4 with epidural extension, secondary spinal canal narrowing Minimize Narcotic use secondary to constipation Will consult Heme onchology Await for recommendations- to see if patient is a candidate for surgery Hyperlipidemia Continue statin Hypothyroidism Continue Levothyroxine DVT px SCDs for now Vital Signs: Date Time Temp Pulse Resp B/P Pulse Ox O2 Delivery O2 Flow Rate FiO2 03/26/16 12:24 36.3 76 16 120/78 96 Room Air 03/26/16 12:21 36.3 76 16 120/78 96 Room Air 03/26/16 08:26 36.6 79 16 113/74 96 Room Air 03/26/16 08:20 Room Air 03/26/16 00:15 36.6 67 18 135/82 97 Room Air 03/26/16 00:00 Room Air 03/25/16 20:21 36.4 69 20 152/85 99 Room Air 03/25/16 20:00 Room Air 03/25/16 16:03 36.5 67 20 135/88 96 Room Air 03/25/16 16:00 96 Room Air Lab Results: Results Past 24 Hours Test 03/26/16 05:13 Range/Units White Blood Count 5.28 4.8-10.8 K/uL Red Blood Count 4.24 4.7-6.1 M/uL Hemoglobin 12.1 14.0-18.0 g/dL Hematocrit 35.4 42-52 % Mean Corpuscular Volume 83.5 80-100 fL Mean Corpuscular Hemoglobin 28.5 25-34 pg Mean Corpuscular Hemoglobin Concent 34.2 32-36 g/dl Platelet Count 270 130-400 K/uL Mean Platelet Volume 9.8 7.4-10.4 fL Neutrophils (%) (Auto) 58.0 % Lymphocytes (%) (Auto) 25.8 % Monocytes (%) (Auto) 13.3 % Eosinophils (%) (Auto) 2.5 % Basophils (%) (Auto) 0.4 % Neutrophils # (Auto) 3.07 1.4-6.5 K/uL Lymphocytes # (Auto) 1.36 1.2-3.4 K/uL Monocytes # (Auto) 0.70 0.11-0.59 K/uL Eosinophils # (Auto) 0.13 0-0.5 K/uL Basophils # (Auto) 0.02 0-0.2 K/uL RDW Standard Deviation 42.3 36.4-46.3 fL RDW Coefficient of Variation 13.8 11.5-14.5 % Immature Granulocyte % (Auto) 0.0 % Immature Granulocyte # (Auto) 0.00 0.00-0.02 K/uL Sodium Level 138 136-145 mmol/L Potassium Level 4.2 3.5-5.1 mmol/L Chloride Level 105 98-107 mmol/L Carbon Dioxide Level 25 21-32 mmol/L Anion Gap 8.0 3-11 mmol/L Blood Urea Nitrogen 19 7-18 mg/dl Creatinine 1.10 0.60-1.40 mg/dl Est Creatinine Clear Calc Drug Dose 70.6 ml/min Estimated GFR () 79.5 Estimated GFR (Non- 68.6 BUN/Creatinine Ratio 17.3 10-20 Random Glucose 87 70-99 mg/dl Calcium Level 9.2 8.5-10.1 mg/dl MRI Thoracic Spine: IMPRESSION: 1. Extensive metastatic disease 2. Large metastatic deposit at the T3 and T4 levels with epidural extension and secondary spinal canal narrowing 3. Mild epidural extension at the T8 level. 4. 3 cm left upper lobe pulmonary mass consistent with neoplasm
[2016-03-26] MEDS ORDERED: CLINDAMYCIN PHOS 150 MG/ML 2 ML VIAL ONE (15:51)
[2016-03-26] MEDS ORDERED: ALBUT/IPRATROP 3MG/0.5MG NEB 3 ML VIAL INH PRN (16:45)
--- NOTE | 2016-03-26 16:50 | DIAGNOSTIC IMAGING REPORT ---
INTRAOPERATIVE CHEST X-RAY CLINICAL HISTORY: NAVIGATIONAL BRONCH COMPARISON STUDY: Chest CT dated 03/19/2016 FINDINGS: There is a bronchoscopic catheter projected over a left upper lobe pulmonary mass. 91 seconds of fluoroscopic time was utilized. IMPRESSION: There is a bronchoscopic catheter projected over a left upper lobe pulmonary mass Electronically signed by: Tc Alvarez M.D. 03/26/2016 4:48 PM Dictated Date/Time: 03/26/2016 4:47 PM
--- NOTE | 2016-03-26 17:00 | DIAGNOSTIC IMAGING REPORT ---
CHEST ONE VIEW PORTABLE CLINICAL HISTORY: Postop bronchoscopic biopsy COMPARISON STUDY: Chest CT dated 03/19/2016 FINDINGS: There is a left lower lobe pulmonary mass. No pneumothorax is visualized. There is no failure. There is no lobar consolidation. There is no pneumothorax.[ IMPRESSION: Left upper lobe pulmonary mass. No evidence of pneumothorax status post biopsy Electronically signed by: Tc Alvarez M.D. 03/26/2016 4:58 PM Dictated Date/Time: 03/26/2016 4:57 PM
--- NOTE | 2016-03-26 17:54 | Anesthesiology Progress Note ---
Anesthesia Post Op Note Date & Time Mar 26, 2016 at 17:54 Vital Signs Pain Intensity: 0 Vital Signs Past 12 Hours Date Time Temp Pulse Resp B/P Pulse Ox O2 Delivery O2 Flow Rate FiO2 03/26/16 17:50 36.4 71 16 132/79 100 Nasal Cannula 2 03/26/16 17:40 36.4 67 16 131/79 100 Nasal Cannula 2 03/26/16 17:30 36.4 76 16 136/76 100 Nasal Cannula 2 03/26/16 17:20 36.4 68 21 127/83 100 Nasal Cannula 2 03/26/16 17:18 36.4 67 18 124/78 100 Nasal Cannula 2 03/26/16 17:10 67 14 124/74 100 Nasal Cannula 2 03/26/16 17:00 66 14 118/74 100 Mask 10 03/26/16 16:50 66 14 122/72 100 Mask 10 03/26/16 16:40 69 24 124/74 100 Mask 10 03/26/16 16:33 36.4 73 20 126/71 100 Mask 10 03/26/16 12:24 36.3 76 16 120/78 96 Room Air 03/26/16 12:21 36.3 76 16 120/78 96 Room Air 03/26/16 08:26 36.6 79 16 113/74 96 Room Air 03/26/16 08:20 Room Air Notes Mental Status: alert / awake / arousable, participated in evaluation Pt Amnestic to Procedure: Yes Nausea / Vomiting: adequately controlled Pain: adequately controlled Airway Patency, RR, SpO2: stable & adequate BP & HR: stable & adequate Hydration State: stable & adequate Anesthetic Complications: no major complications apparent
[2016-03-26] MEDS: POLYETHYLENE (MIRALAX) 17 GM PACK PO PRN ×2 (20:35)
[2016-03-26] MEDS: MAGNESIUM HYDROXIDE SUSP 30 ML UDC PO PRN (20:36)
[2016-03-26] MEDS: KETOROLAC TROMETHAMINE 15 MG/ML VIAL IV. PRN (20:39)
[2016-03-26] MEDS: SIMVASTATIN 80 MG TAB PO SCH (20:40)
[2016-03-26] MEDS ORDERED: DOCUSATE SODIUM 100 MG CAP PO PRN (20:45)
[2016-03-27] VITALS (7 sets, daily range): BP systolic 119–159; BP diastolic 73–85; PULSE 69–84; TEMP 36.2–36.7; O2SAT 94–100; BMI 27.2
[2016-03-27] MEDS ORDERED: SENNA 8.6 MG TAB PO ONE (00:30)
[2016-03-27] MEDS ORDERED: BISACODYL 5 MG TABEC PO ONE (00:30)
[2016-03-27] MEDS: KETOROLAC TROMETHAMINE 15 MG/ML VIAL IV. PRN ×4 (03:37→22:13)
[2016-03-27] MEDS: OXYCODONE/ACETAMINOPHEN 5-325 TAB PO PRN (05:37)
[2016-03-27 05:53] LABS: COMPLETE YES; HEMATOCRIT 35.2 % (42-52); IG% 0.3 %; LYMPH % 10.9 %; LYMPH ABS # 0.63 K/uL (1.2-3.4); MEAN CELL VOLUME 83.4 fL (80-100); MEAN CORPUSCULAR HGB CONC 33.5 g/dl (32-36); MEAN PLATELET VOLUME 9.9 fL (7.4-10.4); MONO % 3.6 %; NEUT % 85.2 %; PLATELET COUNT 290 K/uL (130-400); RED BLOOD COUNT 4.22 M/uL (4.7-6.1); WHITE BLOOD COUNT 5.77 K/uL (4.8-10.8)
[2016-03-27 06:21] LABS: BUN/CREATININE RATIO 14.7 (10-20); CALCIUM 9.1 mg/dl (8.5-10.1); CREATININE 1.2 mg/dl (0.60-1.40); POTASSIUM 4.2 mmol/L (3.5-5.1)
[2016-03-27] MEDS: LEVOTHYROXINE 88 MCG TAB PO SCH (06:54)
--- NOTE | 2016-03-27 10:03 | SURGERY PROGRESS NOTE ---
DATE: 03/27/2016 Mr. Urban is seen 1 day status post navigational bronchoscopy with biopsy of the left upper lobe mass. He has widely metastatic osseous lesions, especially in his spine. He was complaining of intense choking and inability to breathe in his neck and throat area after the procedure; however, I gave him a dose of steroids and this settled down. He is fine today and this has essentially resolved. He is sitting up in bed. He is on room air. He is comfortable except for the pain in his back from his metastases. I had a long talk with Mr. Urban, explained to him that stage IV lung disease with multiple bony metastases has an extremely poor prognosis. He understands. I discussed the pathology with Dr. Alfonso yesterday. It appears we do have a nonsmall cell lung carcinoma, but we do not have much to work with. I am hopeful that our cell blocks and especially our forceps biopsies will give us enough tissue to do molecular analysis. [facility]
[2016-03-27] MEDS: DOCUSATE SODIUM/SENNA 50/8.6MG TAB PO SCH ×2 (11:51→20:17)
--- NOTE | 2016-03-27 16:07 | Progress Note ---
Internal Med Progress Note Date of Service: Mar 27, 2016. Provider Documentation: SUBJECTIVE: Patient is seen and examined at bedside. Reports persistent back pain. Denies any SOB,chest pain. OBJECTIVE: Vital Signs-as noted below General Appearance: Moderately built and nourished. Head: normocephalic, atraumatic Eyes: normal inspection ENT: hearing grossly normal Respiratory/Chest: lungs clear to auscultation, no accessory muscle use Cardiovascular: regular rate, rhythm, no edema, no murmur Abdomen/GI: normal bowel sounds, non tender, soft Extremities/Musculoskelatal: normal inspection, no calf tenderness, no pedal edema Neurologic/Psych: no motor/sensory deficits, alert, oriented x 3, anxious Spine: Mild tenderness in thoracic region Skin: normal color Lymphatic: no adenopathy Lab data as noted below. ASSESSMENT & PLAN: Patient is a 66 Yr old male with PMH of Hyperlipidemia, hypothyroidism, former smoker was a direct admit from oncology office (Dr.Nilesh Scales) for evaluation of lung mass and likely metastatic disease to the bone. Patient was evaluated by orthopedic surgery for clavicular and shoulder pain as outpatient and CT scan performed showing lytic bone lesions of the left clavicle and eft upper lobe spiculated mass with lytic lesions of multiple thoracic levels. Bone scan showed findings suggestive of metastatic bone disease. Patient complained of back and clavicular pain associated with shallow breathing. Patient denied any weight loss, change in appetite, hemoptysis, productive cough, night sweats but did complain of diffuse bone pain. 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: Former smoker quit at age of 23 CT scan shows multiple lytic lesions in left clavicle, sternum, ribs and spine Also left upper lobe lung mass seen severe central canal narrowing at T4 level S/P bronchoscopy and left upper lobe biopsy Repeat CXR: No pneumothorax Pain Control, Oxygen support, bowel regimen for constipation CT surgery, Spine Surgery and radiation oncology following MRI thoracic spine: Extensive metastatic disease, Large metastatic deposit at T3-T4 with epidural extension, secondary spinal canal narrowing Minimize Narcotic use secondary to constipation Hemeonchology consulted Await for recommendations- to see if patient is a candidate for surgery Poor Prognosis Follow up pathology reports Hyperlipidemia Continue statin Hypothyroidism Continue Levothyroxine DVT px Lovenox SQ Vital Signs: Date Time Temp Pulse Resp B/P Pulse Ox O2 Delivery O2 Flow Rate FiO2 03/27/16 15:01 36.6 75 16 159/77 98 Room Air 03/27/16 08:50 Room Air 03/27/16 07:51 97 Room Air 03/27/16 07:42 36.6 78 16 120/81 97 Room Air 03/27/16 02:45 36.7 84 18 119/73 94 Room Air 03/26/16 23:05 36.7 88 18 129/88 96 Room Air 03/26/16 19:53 36.4 81 18 137/80 94 Room Air 03/26/16 18:55 85 18 142/87 100 Room Air 03/26/16 18:40 100 Room Air 03/26/16 18:40 36.3 74 18 127/81 100 Room Air 2.0 03/26/16 17:50 36.4 71 16 132/79 100 Nasal Cannula 2 03/26/16 17:40 36.4 67 16 131/79 100 Nasal Cannula 2 03/26/16 17:30 36.4 76 16 136/76 100 Nasal Cannula 2 03/26/16 17:20 36.4 68 21 127/83 100 Nasal Cannula 2 03/26/16 17:18 36.4 67 18 124/78 100 Nasal Cannula 2 03/26/16 17:10 67 14 124/74 100 Nasal Cannula 2 03/26/16 17:00 66 14 118/74 100 Mask 10 03/26/16 16:50 66 14 122/72 100 Mask 10 03/26/16 16:40 69 24 124/74 100 Mask 10 03/26/16 16:33 36.4 73 20 126/71 100 Mask 10 Lab Results: Results Past 24 Hours Test 03/27/16 05:11 Range/Units White Blood Count 5.77 4.8-10.8 K/uL Red Blood Count 4.22 4.7-6.1 M/uL Hemoglobin 11.8 14.0-18.0 g/dL Hematocrit 35.2 42-52 % Mean Corpuscular Volume 83.4 80-100 fL Mean Corpuscular Hemoglobin 28.0 25-34 pg Mean Corpuscular Hemoglobin Concent 33.5 32-36 g/dl Platelet Count 290 130-400 K/uL Mean Platelet Volume 9.9 7.4-10.4 fL Neutrophils (%) (Auto) 85.2 % Lymphocytes (%) (Auto) 10.9 % Monocytes (%) (Auto) 3.6 % Eosinophils (%) (Auto) 0.0 % Basophils (%) (Auto) 0.0 % Neutrophils # (Auto) 4.91 1.4-6.5 K/uL Lymphocytes # (Auto) 0.63 1.2-3.4 K/uL Monocytes # (Auto) 0.21 0.11-0.59 K/uL Eosinophils # (Auto) 0.00 0-0.5 K/uL Basophils # (Auto) 0.00 0-0.2 K/uL RDW Standard Deviation 41.5 36.4-46.3 fL RDW Coefficient of Variation 13.7 11.5-14.5 % Immature Granulocyte % (Auto) 0.3 % Immature Granulocyte # (Auto) 0.02 0.00-0.02 K/uL Sodium Level 136 136-145 mmol/L Potassium Level 4.2 3.5-5.1 mmol/L Chloride Level 103 98-107 mmol/L Carbon Dioxide Level 24 21-32 mmol/L Anion Gap 9.0 3-11 mmol/L Blood Urea Nitrogen 18 7-18 mg/dl Creatinine 1.20 0.60-1.40 mg/dl Est Creatinine Clear Calc Drug Dose 64.7 ml/min Estimated GFR () 71.6 Estimated GFR (Non- 61.8 BUN/Creatinine Ratio 14.7 10-20 Random Glucose 150 70-99 mg/dl Calcium Level 9.1 8.5-10.1 mg/dl
[2016-03-27] MEDS: SIMVASTATIN 80 MG TAB PO SCH (20:17)
[2016-03-27] MEDS: POLYETHYLENE (MIRALAX) 17 GM PACK PO PRN (20:21)
[2016-03-27] MEDS: LORAZEPAM 1 MG TAB PO PRN (20:21)
[2016-03-27] MEDS: MAGNESIUM HYDROXIDE SUSP 30 ML UDC PO PRN (20:22)
[2016-03-28] VITALS (7 sets, daily range): BP systolic 118–132; BP diastolic 66–88; PULSE 62–84; TEMP 36.2–36.6; O2SAT 94–99; BMI 27.8
[2016-03-28] MEDS: KETOROLAC TROMETHAMINE 15 MG/ML VIAL IV. PRN ×4 (03:55→23:34)
[2016-03-28 05:58] LABS: BASO % 0.3 %; BASO ABS # 0.02 K/uL (0-0.2); COMPLETE YES; HEMATOCRIT 33.2 % (42-52); IG% 0.1 %; LYMPH % 30.3 %; LYMPH ABS # 2.36 K/uL (1.2-3.4); MEAN CELL VOLUME 83.2 fL (80-100); MEAN CORPUSCULAR HEMOGLOBIN 28.3 pg (25-34); MEAN PLATELET VOLUME 9.9 fL (7.4-10.4); MONO % 12.7 %; NEUT % 55.6 %; PLATELET COUNT 268 K/uL (130-400); RED BLOOD COUNT 3.99 M/uL (4.7-6.1)
[2016-03-28 06:34] LABS: BUN/CREATININE RATIO 19.8 (10-20); CALCIUM 8.6 mg/dl (8.5-10.1); CREATININE 1.1 mg/dl (0.60-1.40); POTASSIUM 4.2 mmol/L (3.5-5.1)
[2016-03-28] MEDS: LEVOTHYROXINE 88 MCG TAB PO SCH (06:51)
[2016-03-28] MEDS: DOCUSATE SODIUM/SENNA 50/8.6MG TAB PO SCH ×2 (08:27→19:42)
[2016-03-28] MEDS: ENOXAPARIN 40 MG/0.4 ML SYR SQ SCH (08:28)
[2016-03-28] MEDS ORDERED: NURSING VERBAL MED ORDER ONE (10:00)
[2016-03-28] MEDS ORDERED: MAGNESIUM CITRATE 296 ML/BTL PO ONE (10:00)
--- NOTE | 2016-03-28 12:06 | Progress Note ---
Internal Med Progress Note Date of Service: Mar 28, 2016. Provider Documentation: SUBJECTIVE: Patient is seen and examined at bedside. Constipation resolved. Has persistent back pain. Denies any SOB,chest pain. Family at bedside. OBJECTIVE: Vital Signs-as noted below General Appearance: Moderately built and nourished. Head: normocephalic, atraumatic Eyes: normal inspection ENT: hearing grossly normal Respiratory/Chest: lungs clear to auscultation, no accessory muscle use Cardiovascular: regular rate, rhythm, no edema, no murmur Abdomen/GI: normal bowel sounds, non tender, soft Extremities/Musculoskelatal: normal inspection, no calf tenderness, no pedal edema Neurologic/Psych: no motor/sensory deficits, alert, oriented x 3, anxious Spine: Mild tenderness in thoracic region Skin: normal color Lymphatic: no adenopathy Lab data as noted below. ASSESSMENT & PLAN: Patient is a 66 Yr old male with PMH of Hyperlipidemia, hypothyroidism, former smoker was a direct admit from oncology office (Dr.Nilesh Scales) for evaluation of lung mass and likely metastatic disease to the bone. Patient was evaluated by orthopedic surgery for clavicular and shoulder pain as outpatient and CT scan performed showing lytic bone lesions of the left clavicle and eft upper lobe spiculated mass with lytic lesions of multiple thoracic levels. Bone scan showed findings suggestive of metastatic bone disease. Patient complained of back and clavicular pain associated with shallow breathing. Patient denied any weight loss, change in appetite, hemoptysis, productive cough, night sweats but did complain of diffuse bone pain. 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: Former smoker quit at age of 23 CT scan shows multiple lytic lesions in left clavicle, sternum, ribs and spine Also left upper lobe lung mass seen severe central canal narrowing at T4 level S/P bronchoscopy and left upper lobe biopsy Repeat CXR: No pneumothorax Pain Control, Oxygen support, bowel regimen for constipation CT surgery, Spine Surgery and radiation oncology following MRI thoracic spine: Extensive metastatic disease, Large metastatic deposit at T3-T4 with epidural extension, secondary spinal canal narrowing Minimize Narcotic use secondary to constipation Heme onchology consult pending Poor Prognosis Pathology reports pending Hyperlipidemia Continue statin Hypothyroidism Continue Levothyroxine DVT px Lovenox SQ Vital Signs: Date Time Temp Pulse Resp B/P Pulse Ox O2 Delivery O2 Flow Rate FiO2 03/28/16 08:30 Room Air 03/28/16 07:57 36.2 74 16 129/88 98 Room Air 03/28/16 03:45 36.6 84 16 118/68 96 Room Air 03/28/16 01:05 Room Air 03/27/16 23:13 36.2 69 14 140/84 96 Room Air 03/27/16 20:01 36.5 71 18 130/85 100 Room Air 03/27/16 20:00 Room Air 03/27/16 16:00 98 Room Air 03/27/16 15:01 36.6 75 16 159/77 98 Room Air Lab Results: Results Past 24 Hours Test 03/28/16 05:31 Range/Units White Blood Count 7.80 4.8-10.8 K/uL Red Blood Count 3.99 4.7-6.1 M/uL Hemoglobin 11.3 14.0-18.0 g/dL Hematocrit 33.2 42-52 % Mean Corpuscular Volume 83.2 80-100 fL Mean Corpuscular Hemoglobin 28.3 25-34 pg Mean Corpuscular Hemoglobin Concent 34.0 32-36 g/dl Platelet Count 268 130-400 K/uL Mean Platelet Volume 9.9 7.4-10.4 fL Neutrophils (%) (Auto) 55.6 % Lymphocytes (%) (Auto) 30.3 % Monocytes (%) (Auto) 12.7 % Eosinophils (%) (Auto) 1.0 % Basophils (%) (Auto) 0.3 % Neutrophils # (Auto) 4.34 1.4-6.5 K/uL Lymphocytes # (Auto) 2.36 1.2-3.4 K/uL Monocytes # (Auto) 0.99 0.11-0.59 K/uL Eosinophils # (Auto) 0.08 0-0.5 K/uL Basophils # (Auto) 0.02 0-0.2 K/uL RDW Standard Deviation 42.4 36.4-46.3 fL RDW Coefficient of Variation 13.9 11.5-14.5 % Immature Granulocyte % (Auto) 0.1 % Immature Granulocyte # (Auto) 0.01 0.00-0.02 K/uL Sodium Level 138 136-145 mmol/L Potassium Level 4.2 3.5-5.1 mmol/L Chloride Level 104 98-107 mmol/L Carbon Dioxide Level 26 21-32 mmol/L Anion Gap 8.0 3-11 mmol/L Blood Urea Nitrogen 22 7-18 mg/dl Creatinine 1.10 0.60-1.40 mg/dl Est Creatinine Clear Calc Drug Dose 70.6 ml/min Estimated GFR () 79.5 Estimated GFR (Non- 68.6 BUN/Creatinine Ratio 19.8 10-20 Random Glucose 92 70-99 mg/dl Calcium Level 8.6 8.5-10.1 mg/dl
[2016-03-28] MEDS: OXYCODONE/ACETAMINOPHEN 5-325 TAB PO PRN (18:52)
[2016-03-28] MEDS: MoRPHine SULFATE 4 MG/ML 1 ML CARP\\VIAL IV PRN (21:30)
[2016-03-28] MEDS: SIMVASTATIN 80 MG TAB PO SCH (21:33)
[2016-03-29] MEDS: MoRPHine SULFATE 4 MG/ML 1 ML CARP\\VIAL IV PRN ×5 (01:20→21:36)
[2016-03-29 04:00] VITALS: BP 133/81; PULSE 62; TEMP 36.3; O2SAT 95
[2016-03-29] MEDS: LEVOTHYROXINE 88 MCG TAB PO SCH (05:39)
[2016-03-29 06:46] VITALS: BMI 27.0
[2016-03-29 06:49] LABS: BUN/CREATININE RATIO 16.4 (10-20); CALCIUM 8.8 mg/dl (8.5-10.1); CREATININE 1.1 mg/dl (0.60-1.40); POTASSIUM 4.1 mmol/L (3.5-5.1)
--- NOTE | 2016-03-29 08:05 | Anesthesiology Progress Note ---
Anesthesia Post Op Note Date & Time Mar 29, 2016 at 08:04 Vital Signs Vital Signs Past 12 Hours Date Time Temp Pulse Resp B/P Pulse Ox O2 Delivery O2 Flow Rate FiO2 03/29/16 04:00 36.3 62 16 133/81 95 Room Air 03/28/16 23:59 94 Room Air 03/28/16 23:54 36.5 62 20 127/66 94 Room Air Notes Mental Status: alert / awake / arousable, participated in evaluation Pt Amnestic to Procedure: Yes Nausea / Vomiting: adequately controlled Pain: adequately controlled Airway Patency, RR, SpO2: stable & adequate BP & HR: stable & adequate Hydration State: stable & adequate Anesthetic Complications: no major complications apparent
[2016-03-29 08:27] VITALS: BP 126/80; PULSE 59; TEMP 36.3; O2SAT 98
[2016-03-29] MEDS: KETOROLAC TROMETHAMINE 15 MG/ML VIAL IV. PRN (08:28)
[2016-03-29] MEDS: ONDANSETRON INJ 2 MG/ML 2 ML VIAL IV PRN (08:28)
[2016-03-29] MEDS: ENOXAPARIN 40 MG/0.4 ML SYR SQ SCH (08:32)
[2016-03-29] MEDS: DOCUSATE SODIUM/SENNA 50/8.6MG TAB PO SCH ×2 (08:32→19:37)
--- NOTE | 2016-03-29 11:34 | Progress Note ---
Internal Med Progress Note Date of Service: Mar 29, 2016. Provider Documentation: SUBJECTIVE: Patient is seen and examined at bedside. States having persistent back pain which is controlled with meds. Denies any SOB,chest pain. Denies weakness, numbness, bowel/bladder incontinence. OBJECTIVE: Vital Signs-as noted below General Appearance: Moderately built and nourished. Head: normocephalic, atraumatic Eyes: normal inspection ENT: hearing grossly normal Respiratory/Chest: lungs clear to auscultation, no accessory muscle use Cardiovascular: regular rate, rhythm, no edema, no murmur Abdomen/GI: normal bowel sounds, non tender, soft Extremities/Musculoskelatal: normal inspection, no calf tenderness, no pedal edema Neurologic/Psych: no motor/sensory deficits, alert, oriented x 3, anxious Spine: Mild tenderness in thoracic region Skin: normal color Lymphatic: no adenopathy Lab data as noted below. ASSESSMENT & PLAN: Patient is a 66 Yr old male with PMH of Hyperlipidemia, hypothyroidism, former smoker was a direct admit from oncology office (Dr.Nilesh Scales) for evaluation of lung mass and likely metastatic disease to the bone. Patient was evaluated by orthopedic surgery for clavicular and shoulder pain as outpatient and CT scan performed showing lytic bone lesions of the left clavicle and eft upper lobe spiculated mass with lytic lesions of multiple thoracic levels. Bone scan showed findings suggestive of metastatic bone disease. Patient complained of back and clavicular pain associated with shallow breathing. Patient denied any weight loss, change in appetite, hemoptysis, productive cough, night sweats but did complain of diffuse bone pain. 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: Former smoker quit at age of 23 CT scan shows multiple lytic lesions in left clavicle, sternum, ribs and spine Also left upper lobe lung mass seen severe central canal narrowing at T4 level S/P bronchoscopy and left upper lobe biopsy Repeat CXR: No pneumothorax Pain Control, Oxygen support, bowel regimen for constipation CT surgery, Spine Surgery and radiation oncology following MRI thoracic spine: Extensive metastatic disease, Large metastatic deposit at T3-T4 with epidural extension, secondary spinal canal narrowing Minimize Narcotic use secondary to constipation Heme oncology consulted Poor Prognosis Pathology reports pending Patient contemplating to have second opinion from [facility] for possible surgery Hyperlipidemia Continue statin Hypothyroidism Continue Levothyroxine DVT px Lovenox SQ Vital Signs: Date Time Temp Pulse Resp B/P Pulse Ox O2 Delivery O2 Flow Rate FiO2 03/29/16 08:27 36.3 59 16 126/80 98 Room Air 03/29/16 08:20 Room Air 03/29/16 04:00 36.3 62 16 133/81 95 Room Air 03/28/16 23:59 94 Room Air 03/28/16 23:54 36.5 62 20 127/66 94 Room Air 03/28/16 19:57 36.6 74 16 132/82 95 Room Air 03/28/16 15:30 Room Air 03/28/16 15:04 36.5 73 16 130/84 99 Room Air 03/28/16 12:01 36.5 79 20 126/84 98 Lab Results: Results Past 24 Hours Test 03/29/16 05:22 Range/Units Sodium Level 139 136-145 mmol/L Potassium Level 4.1 3.5-5.1 mmol/L Chloride Level 103 98-107 mmol/L Carbon Dioxide Level 27 21-32 mmol/L Anion Gap 9.0 3-11 mmol/L Blood Urea Nitrogen 18 7-18 mg/dl Creatinine 1.10 0.60-1.40 mg/dl Est Creatinine Clear Calc Drug Dose 70.6 ml/min Estimated GFR () 79.5 Estimated GFR (Non- 68.6 BUN/Creatinine Ratio 16.4 10-20 Random Glucose 82 70-99 mg/dl Calcium Level 8.8 8.5-10.1 mg/dl
[2016-03-29 11:40] VITALS: BP 132/67; PULSE 64; TEMP 36.5; O2SAT 99
--- NOTE | 2016-03-29 12:47 | ORTHOPEDIC CONSULTATION ---
DATE OF CONSULTATION: 03/26/2016 CHIEF COMPLAINT: Back pain. HISTORY OF PRESENT ILLNESS: A very pleasant 66-year-old male that presents to the hospital with thoracic back pain. A CAT scan, as well as MRI of the thoracolumbar region does demonstrate significant metastatic disease, most intense of which is at T4 with significant canal encroachment. The patient at this time has denied any neurologic symptoms at least affecting the lower extremities; however, he does have some radicular type armpit discomfort on the right, undoubtedly associated with the T4 metastatic disease and growth into the canal and neural foramen. I had a long discussion with this patient and his , reviewing his imaging findings, and recommendations. This included an outside consultation with Dr. Aly Griffiths at [facility]. I spoke with him personally as I reviewed his films. PLAN: At this time, at least in our hands, we did not feel that surgery was in his best interest. To debulk the tumor and destabilize around the tumor with rods and screws or an interbody construct, it would be quite challenging in light of the extent of the metastatic disease involving almost every bone throughout the thoracolumbar spine. This is relayed in detail with the patient. He understands and agrees. At this time, it is our recommendation to seek further information regarding chemotherapy or radiation care for his issues. I did emphasize that he is at risk for neurologic decline if he were to strained himself in any capacity. I have asked that he not involve lifting greater than 5-10 pounds, ambulation only. For this reason, there has been discussion regarding transportation. He would be at risk if even a modest fender peoples type of an accident of having more of a catastrophic result than the average individual in light of his significant pathologic spine involvement.
[2016-03-29 15:27] VITALS: BP 138/84; PULSE 71; TEMP 36.6; O2SAT 99
--- NOTE | 2016-03-29 19:11 | Medical Consult ---
Consultation Date of Consultation: Mar 29, 2016. Attending Physician: Shekhar oY MD Reason for Consultation: Stage IV lung cancer with diffuse metastatic disease to bones, newly diagnosed in 02/2016. History of Present Illness Mr. Urban is a 66 yo male new to consulting oncology service. He was sent to the emergency room on 03/24/[address] Scales after he reviewed the patient 's medical records due to a significant lesion at T4 causing cord compression. The patient states that he initially sought medical care when he had significant left clavicular and shoulder pain. He was partaking in physical therapy for about 6 weeks (02/03-03/05), when he decided that the pain was not significantly improving and that he should return to orthopedics and have further evaluation for his symptoms. The patient reports that x-rays of his clavicle in shoulder on the left side were obtained, but these are not available for review. Apparently there were findings concerning for metastatic disease, which led to a CT of the chest on 03/16/2016, detailed below ; a left upper lobe mass as well as diffuse metastatic disease were identified. Subsequently, on 03/19/2016 the patient had a bone scan, CT of the chest, abdomen and pelvis with contrast. The bone scan confirmed diffuse axial and appendicular skeleton metastases, as well as the medial left femoral condyle. The CT of the chest revealed a large lesion at T4 causing spinal cord compression. No liver or adrenal metastatic disease were identified. A few small subcentimeter intra-abdominal lymph nodes were identified, of undetermined significance. See below for detailed account of these exams. The patient had an urgent referral to Dr. Scales in Oncology, which was planned for 03/31/2016. However, Dr. Scales reviewed the records on 03/24/2016 and due to the concern for spinal cord compression at T4, the patient was called in directed immediately to the emergency room. He was then admitted to [facility]. CT of the thoracic spine was obtained on 03/25/2016 , which again confirmed a 3 cm spiculated left upper lobe pulmonary mass, consistent with primary bronchogenic carcinoma. Extensive lytic bone disease, with involvement of every thoracic vertebral body or pursed air elements. Also vomit of the L1 vertebral body. At the T4 level there is extensive destruction of the posterior vertebral body, posterior elements and right lateral mass with extensive epidural tumor causing secondary cord compression. Mass measuring 4.6 x 3.8 cm. There is epidural disease within the canal narrowing at the T5 level to. At T8, mild anterior epidural tumor. Innumerable bilateral tiny pulmonary nodules. MRI of the thoracic spine from 03/25/2016 revealed geographic areas of marrow replacement involving a recent rested vertebra, as well as the L1 through L5 vertebra and S1 an S3 vertebra. At the T4-5 level, there is epidural extension of neoplasm, measuring approximately 4.3 x 3.6 cm. Secondary canal narrowing noted ; residual canal measuring 11 x 10 mm. Mild spite of neoplasm into the anterior epidural space at T8 level. Bronchoscopy was performed by Dr. Berg on 03/26/2016. Left upper lobe bronchial brushing and FNA positive for malignant cells consistent with adenocarcinoma. ALK, ROS1, EGFR and PD L1 are pending at this time. Bronchial biopsy of left upper lobe nondiagnostic for carcinoma. [facility] Neurosurgery, Dr. Griffiths, was consult id on the case to see if the patient could be transferred to [facility] for palliative decompressive surgery at the T4/5 level. Per the patient, Dr. Griffiths did not feel the patient was a surgical candidate. Radiation oncology was also consulted ; the plan was for surgical decompression to be accomplished with follow-up palliative radiation to the area. The patient and his have initiated contact with [facility] ; Dr. Alvarado is the primary physician contact at this institution. The patient would like to be directly transfer to [facility]; however, the plan is to go to a satellite location in [place] this Tuesday to meet with a interdisciplinary team regarding treatment in his case. Additional history obtained from the patient at bedside. The patient reports that his left clavicular /shoulder pain and spine pain are well controlled with morphine injection every 4 hours as needed. He states that he was on Vicodin prior to admission after a lipoma from his chest wall was removed. Therefore, during this administration he developed significant constipation for which he was taking stool softener and MiraLax without improvement. He states yesterday he received magnesium citrate and he had a large bowel movement. He reports a good appetite and has not had nausea or vomiting. He does note dyspnea with minor exertion, but no cough. He has no headache, dizziness or vision changes. Social History Smoking Status: Former Smoker Marital Status: Housing Status: lives with family Allergies Coded Allergies: No Known Allergies (Unverified , 03/24/16) Current Inpatient Medications Current Inpatient Medications Medications (Trade) Dose Ordered Sig/[place] Route Start Time Stop Time Status Last Admin Dose Admin Acetaminophen (Tylenol Tab) 650 mg Q4H PRN PO 03/24/16 20:00 04/23/16 19:59 Al Hydrox/Mg Hydrox/Simethicone (Maalox Max Susp) 15 ml Q4H PRN PO 03/24/16 20:00 04/23/16 19:59 Magnesium Hydroxide (Milk Of Magnesia Susp) 30 ml Q6H PRN PO 03/24/16 20:00 04/23/16 19:59 03/27/16 20:22 30 ML Polyethylene (Miralax Powder Packet) 17 gm DAILY PRN PO 03/24/16 20:00 04/23/16 19:59 03/27/16 20:21 17 GM Ondansetron HCl (Zofran Inj) 4 mg Q6H PRN IV 03/24/16 20:00 04/23/16 19:59 03/29/16 08:28 4 MG Lorazepam (Ativan Tab) 1 mg Q4 PRN PO 03/24/16 20:00 04/23/16 19:59 03/27/16 20:21 1 MG Oxycodone/ Acetaminophen (Percocet 5-325MG Tab) 1 tab Q4H PRN PO 03/24/16 20:00 04/07/16 19:59 03/28/16 18:52 1 TAB Levothyroxine Sodium (Synthroid Tab) 88 mcg DAILYBB PO 03/25/16 06:30 04/24/16 06:29 03/29/16 05:39 88 MCG Simvastatin (Zocor Tab) 80 mg HS PO 03/24/16 21:00 04/23/16 20:59 03/28/16 21:33 80 MG Morphine Sulfate (MoRPHine SULFATE INJ) 3 mg Q4 PRN IV 03/25/16 04:00 04/08/16 03:59 03/29/16 11:49 3 MG Ketorolac Tromethamine (Toradol Inj) 15 mg Q6H PRN IV. 03/26/16 09:15 03/31/16 09:14 03/29/16 08:28 15 MG Senna/Docusate Sodium (Senokot S Tab) 1 tab BID PO 03/27/16 09:45 04/26/16 09:44 03/29/16 08:32 1 TAB Enoxaparin Sodium (Lovenox Inj) 40 mg QAM SQ 03/28/16 08:00 04/27/16 07:59 03/29/16 08:32 40 MG Review of Systems Constitutional: No chills, No fever, No weight loss Eyes: No diplopia, No worsening of vision Respiratory: + shortness of breath, No cough Cardiovascular: No chest pain, No edema Abdomen: + constipation, No GI bleeding, No nausea, No pain, No vomiting Musculoskeletal: + problem reported (see HPI) Neurologic: No memory loss, No vertigo Hematologic / Lymphatic: No night sweats, No swollen lymph nodes Integumentary: + problem reported (reports left subcutaneous nodule x 1 month) Physical Exam Date Time Temp Pulse Resp B/P Pulse Ox O2 Delivery O2 Flow Rate FiO2 03/29/16 16:05 Room Air 03/29/16 15:27 36.6 71 18 138/84 99 Room Air 03/29/16 11:40 36.5 64 16 132/67 99 Room Air 03/29/16 08:27 36.3 59 16 126/80 98 Room Air 03/29/16 08:20 Room Air 03/29/16 04:00 36.3 62 16 133/81 95 Room Air 03/28/16 23:59 94 Room Air 03/28/16 23:54 36.5 62 20 127/66 94 Room Air 03/28/16 19:57 36.6 74 16 132/82 95 Room Air General Appearance: WD/WN, no apparent distress Head: normocephalic, atraumatic Eyes: normal inspection, EOMI ENT: hearing grossly normal Neck: no adenopathy, + pertinent finding (around 1 cm firm subcutaneous nodule on anterior left neck) Respiratory/Chest: lungs clear, normal breath sounds, no accessory muscle use Cardiovascular: regular rate, rhythm, no edema Abdomen/GI: normal bowel sounds, non tender, no organomegaly Extremities/Musculoskelatal: normal inspection, no calf tenderness Neurologic/Psych: alert, oriented x 3 Skin: normal color, warm/dry Laboratory Results 03/27/16 05:11 Red Blood Count 4.22, Mean Corpuscular Volume 83.4, Mean Corpuscular Hemoglobin 28.0, Mean Corpuscular Hemoglobin Concent 33.5, Mean Platelet Volume 9.9, Neutrophils (%) (Auto) 85.2, Lymphocytes (%) (Auto) 10.9, Monocytes (%) (Auto) 3.6, Eosinophils (%) (Auto) 0.0, Basophils (%) (Auto) 0.0, Neutrophils # (Auto) 4.91, Lymphocytes # (Auto) 0.63, Monocytes # (Auto) 0.21, Eosinophils # (Auto) 0.00, Basophils # (Auto) 0.00 03/28/16 05:31 Red Blood Count 3.99, Mean Corpuscular Volume 83.2, Mean Corpuscular Hemoglobin 28.3, Mean Corpuscular Hemoglobin Concent 34.0, Mean Platelet Volume 9.9, Neutrophils (%) (Auto) 55.6, Lymphocytes (%) (Auto) 30.3, Monocytes (%) (Auto) 12.7, Eosinophils (%) (Auto) 1.0, Basophils (%) (Auto) 0.3, Neutrophils # (Auto ) 4.34, Lymphocytes # (Auto) 2.36, Monocytes # (Auto) 0.99, Eosinophils # (Auto ) 0.08, Basophils # (Auto) 0.02 03/27/16 05:11 03/28/16 05:31 03/29/16 05:22 Test 03/27/16 05:11 03/28/16 05:31 03/29/16 05:22 White Blood Count 5.77 K/uL (4.8-10.8) 7.80 K/uL (4.8-10.8) Red Blood Count 4.22 M/uL (4.7-6.1) 3.99 M/uL (4.7-6.1) Hemoglobin 11.8 g/dL (14.0-18.0) 11.3 g/dL (14.0-18.0) Hematocrit 35.2 % (42-52) 33.2 % (42-52) Mean Corpuscular Volume 83.4 fL (80-100) 83.2 fL (80-100) Mean Corpuscular Hemoglobin 28.0 pg (25-34) 28.3 pg (25-34) Mean Corpuscular Hemoglobin Concent 33.5 g/dl (32-36) 34.0 g/dl (32-36) Platelet Count 290 K/uL (130-400) 268 K/uL (130-400) Mean Platelet Volume 9.9 fL (7.4-10.4) 9.9 fL (7.4-10.4) Neutrophils (%) (Auto) 85.2 % 55.6 % Lymphocytes (%) (Auto) 10.9 % 30.3 % Monocytes (%) (Auto) 3.6 % 12.7 % Eosinophils (%) (Auto) 0.0 % 1.0 % Basophils (%) (Auto) 0.0 % 0.3 % Neutrophils # (Auto) 4.91 K/uL (1.4-6.5) 4.34 K/uL (1.4-6.5) Lymphocytes # (Auto) 0.63 K/uL (1.2-3.4) 2.36 K/uL (1.2-3.4) Monocytes # (Auto) 0.21 K/uL (0.11-0.59) 0.99 K/uL (0.11-0.59) Eosinophils # (Auto) 0.00 K/uL (0-0.5) 0.08 K/uL (0-0.5) Basophils # (Auto) 0.00 K/uL (0-0.2) 0.02 K/uL (0-0.2) RDW Standard Deviation 41.5 fL (36.4-46.3) 42.4 fL (36.4-46.3) RDW Coefficient of Variation 13.7 % (11.5-14.5) 13.9 % (11.5-14.5) Immature Granulocyte % (Auto) 0.3 % 0.1 % Immature Granulocyte # (Auto) 0.02 K/uL (0.00-0.02) 0.01 K/uL (0.00-0.02) Anion Gap 9.0 mmol/L (3-11) 8.0 mmol/L (3-11) 9.0 mmol/L (3-11) Est Creatinine Clear Calc Drug Dose 64.7 ml/min 70.6 ml/min 70.6 ml/min Estimated GFR () 71.6 79.5 79.5 Estimated GFR (Non- 61.8 68.6 68.6 BUN/Creatinine Ratio 14.7 (10-20) 19.8 (10-20) 16.4 (10-20) Calcium Level 9.1 mg/dl (8.5-10.1) 8.6 mg/dl (8.5-10.1) 8.8 mg/dl (8.5-10.1) The patient has CT of the chest on 03/16/2016 for bilateral shoulder pain. This revealed indistinct expansile lytic lesion that involved the medial aspect of the left clavicle. This measures approximately 5 point cm length. There is mild adjacent abnormal soft tissue. Small lytic lesions noted the mid to distal shaft of the left clavicle. The findings are concerning for bony metastatic disease. There are several lytic lesions in the visualized upper thoracic vertebral bodies, including T1 through T4. Largest lesion is at the T3 level with which replaces the majority of the left side of the vertebral body. Incompletely imaged there is a spiculated anterior left upper lobe lung lesion measuring 2.6 cm maximally. Tiny nodules are scattered diffusely throughout the visualized apices, ranging in size from 2-4 mm. He had a bone scan on 03/19/2016 that showed diffuse bony metastatic changed to out the axial and appendicular skeleton. Metastatic foci throughout the thoracolumbar spine at multiple levels. Intense activity overlying left clavicle as well as sternum instr no clavicular joint on the left. Several rib lesions bilaterally. Probable metastatic change involving medial iliac wings as well as mid sacrum. Intense activity medial femoral condyle on the left. 2 foci of moderate activity of the left frontal bone of the skull. CT of the abdomen and pelvis from 03/19/2016: Liver enhances uniformly. 2.2 cm cyst anterior aspect left hepatic lobe. 1 cm hypodense nodule posterior aspect of the spleen. Adrenal glands are within normal limits. Mild wall thickening of the cecum and proximal ascending colon with colonoscopy suggested. Diffuse bony metastatic changes throughout the osseous structures. Small lytic defect is identified within the right supra acetabular region. A more prominent lytic defect is seen mid right iliac wing measuring 2.7 cm. Smaller lesions are identified in the left as well as right iliac wing regions. Lytic changes are identified in the left sacral body. Lytic defects throughout the bulk of the vertebral bodies. Largest of L1 anteriorly measuring around 5 cm. Smaller lesions including a lesion of the right posterior arch of L1 present. Additional lytic lesions identified throughout the bulk of the visualized vertebral bodies. Somewhat destructive slightly expansile lesion of the left posterior 9th rib. Several small abdominal pelvic nodes none of which exceeds 7 mm of uncertain significance. CT of the chest from 03/19/2016: 3.2 x 1.8 cm spiculated mass within left lung apex demonstrating few pleural extensions. There is a 3 mm subpleural nodule on the and adjacent left major fissure. Also a 4 mm satellite nodule within the left upper lobe. Few tiny nodules within the bilateral upper lobes measuring between 1 and 3 mm. These could be metastases. Multiple additional tiny nodular subpleural densities measuring between 1 and 2 mm, most pronounced along the fissures, could be chronic interstitial in nature. No pleural effusions. Thrombosed left upper lobe segmental pulmonary artery extending toward the left apical mass (bland or tumor thrombus, less likely PE). No mediastinal or hilar adenopathy. Left lateral lower chest wall there is a partially visualized 6 x 2 cm subcutaneous soft tissue lesion. Multiple lytic lesions seen within the left clavicle, sternum, ribs and spine. Mild inferior endplate pathologic compression fracture at T10. Small focus of epidural extension at the T5 and T8 levels resulting in mild central canal narrowing. Large destructive mass along the right side of the T4 vertebral body which extends into the right pedicle/transverse process/lamina, measuring 4.2 x 3.8 cm , resulting in moderate to severe central canal narrowing with probable cord compression and left displacement of the cord. CT and MRI of thoracic spine from 03/25/2016 as detailed above. Assessment & Plan (1) Adenocarcinoma of left lung, stage 4 Assessment & Plan: History and diagnostic work up as above. Patient has Stage IV adenocarcinoma with diffuse metastatic disease to axial/appendicular skeleton and left medial femoral condyle. He has lung satellite lesions. He has intra-abdominal adenopathy of undetermined significance. ALK, ROS1, EGFR, PD-L1 pending, though tissue specimen may not be adequate for testing. He has spinal cord compression at T4/5 level due to extent of bony/epidural lesion. [facility] neurosurgery, per patient, has deemed him not an operable candidate for palliative decompression. The patient and his have initiated contact with [facility] and are working with Dr. Alvarado. An interdisciplinary meeting is planned for this coming Tuesday at a satellite of [facility] in [place]. The patient would like a direct transfer to [facility], which Dr. Scales does not believe is feasible at this time. To complete staging work up, brain MRI will be obtained prior to tentative discharge tomorrow. Once his spinal disease is adequately palliated through surgical and radiation measures, the patient, depending on performance status, could be started on palliative systemic therapy, pending tumor mykel assays as detailed above. He will also require an agent such as Xgeva or Zometa for his bone metastasis. 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 (3) Subcutaneous nodule Assessment & Plan: Will have Dr. Scales examine tonight; not convinced at this time that patient has left neck subcutaneous deposit. (4) Fracture of thoracic spine Assessment & Plan: See discussion # 1. I performed history and physical examination of the patient. I have discussed the patient's case, impression and plan with Maryan Starr PA-C. Her note reflects my findings and plan. He is a 66-year-old male, who had smoking history in the past which was discontinued man years back, recently complained of increasing back pain, found to have left upper lobe lung mass, extensive bony metastatic disease, no mediastinal hilar lymph alexandrea involvement noted, no liver lesions noted, no brain metastatic disease noted, has significant multiple body involvement with soft tissue masses involving the upper thoracic and lumbar spine which is close to the spinal cord but no neurological symptoms or deficit as of now. He was seen by Dr. Arzate, also Dr. Arzate discussed his case with neurosurgeon a [facility] , [place], because of extensive spinal involvement, they decided against surgical intervention, seen by radiation oncologist Dr. Scales. I reviewed with him and his and his daughter regarding diagnostic workup done in his case. Biopsy from the left upper lobe lung mass confirmed non-small cell lung cancer (adenocarcinoma). He says that he will have medical oncology evaluation by lung cancer specialist in [place] on Tuesday. I have advised them to stay in touch with me after the consultation, if they decide to proceed for surgical intervention, he will have surgical intervention at [facility] in [place]. I informed the patient that we can give him systemic chemotherapy in [facility], he can also received radiation treatment locally here at [facility]. EGFR, ALK, ROS 1 and PD L1 pending. Also discussed with them regarding the role of bone modifying agent that can be considered in his case, I would consider for Xgeva every 4 weekly. Jac Scales MD Hematology/Oncology
[2016-03-29] MEDS: LORAZEPAM 1 MG TAB PO PRN (19:37)
[2016-03-29 19:42] VITALS: BP 136/84; PULSE 74; TEMP 36.4; O2SAT 100
[2016-03-29] MEDS: SIMVASTATIN 80 MG TAB PO SCH (20:37)
[2016-03-30 00:30] VITALS: BP 144/92; PULSE 69; TEMP 36.4; O2SAT 99
[2016-03-30] MEDS: MoRPHine SULFATE 4 MG/ML 1 ML CARP\\VIAL IV PRN ×2 (03:10→09:45)
[2016-03-30 04:49] VITALS: BP 137/90; PULSE 72; TEMP 36.7; O2SAT 95
[2016-03-30 05:55] LABS: HEMATOCRIT 38.1 % (42-52); MEAN CELL VOLUME 85.8 fL (80-100); MEAN CORPUSCULAR HEMOGLOBIN 28.4 pg (25-34); MEAN CORPUSCULAR HGB CONC 33.1 g/dl (32-36); MEAN PLATELET VOLUME 9.7 fL (7.4-10.4); PLATELET COUNT 259 K/uL (130-400); RED BLOOD COUNT 4.44 M/uL (4.7-6.1); WHITE BLOOD COUNT 6.88 K/uL (4.8-10.8)
[2016-03-30] MEDS: LEVOTHYROXINE 88 MCG TAB PO SCH (06:09)
[2016-03-30 06:19] LABS: CREATININE 1.1 mg/dl (0.60-1.40)
[2016-03-30 07:02] VITALS: Ht 182.9 cm; Wt 90.2 kg
[2016-03-30] MEDS: LORAZEPAM 1 MG TAB PO PRN (07:49)
[2016-03-30] MEDS: DOCUSATE SODIUM/SENNA 50/8.6MG TAB PO SCH (07:49)
[2016-03-30] MEDS: ENOXAPARIN 40 MG/0.4 ML SYR SQ SCH (07:50)
[2016-03-30 07:55] VITALS: BP 145/90; PULSE 72; TEMP 36.7; O2SAT 99
--- NOTE | 2016-03-30 09:02 | DIAGNOSTIC IMAGING REPORT ---
MRI OF THE BRAIN COMBO CLINICAL HISTORY: Metastatic lung cancer. COMPARISON STUDY: Nuclear bone scan dated 03/19/2016. TECHNIQUE: MRI of the brain was performed utilizing various T1 and T2-weighted sequences in the axial, sagittal, and coronal planes. Contrast-enhanced sequences were acquired following the administration of 9 cc of Gadavist. FINDINGS: Brain parenchyma: There are age-related involutional changes noting minimal patchy subcortical and periventricular microangiopathic disease. There is no hemorrhage or mass effect. There is no restricted diffusion to suggest acute ischemia. No enhancing mass lesion is identified on the postcontrast images. Vega-white matter differentiation is preserved. No extra-axial fluid collection is seen. The cerebellar tonsils are normal in configuration. Ventricles, sulci, and cisterns: Prominent secondary to involutional change. Pituitary and sella: There is an 8 mm ovoid cystic lesion in the left aspect of the sella. There is no nodular soft tissue component or postcontrast enhancement. The pituitary gland is otherwise normal as imaged. Intracranial vasculature: Normal flow voids are maintained at the skull base. Orbits: The bony orbits are grossly intact. Orbital contents are normal in appearance noting bilateral ocular lens implants. Sinuses and mastoids: Clear. Calvarium: There are at least 2 osseous metastases in the left frontal calvarium. A single metastatic focus is present in the right posterior parietal calvarium. There may also be a destructive lesion in the left mandibular condyle. Cervical cord: Partially visualized cervical spinal cord is normal in morphology and signal intensity. IMPRESSION: 1. There is no acute intracranial abnormal. Specifically, there is no evidence of intracranial metastatic disease. 2. At least 3 calvarial metastatic lesions are identified. 3. There is an 8 mm simple appearing ovoid cystic lesion in the sella, likely representing a small Rathke's cleft cyst. This is of doubtful significance. Electronically signed by: Nishant Farr M.D. 03/30/2016 9:00 AM Dictated Date/Time: 03/30/2016 8:50 AM
--- NOTE | 2016-03-30 10:11 | Progress Note ---
Internal Med Progress Note Date of Service: Mar 30, 2016. Provider Documentation: SUBJECTIVE: Patient is seen and examined at bedside. No significant change from yesterday. Complains of persistent back pain. No new complaints. Had MRI Brain this morning. OBJECTIVE: Vital Signs-as noted below General Appearance: Moderately built and nourished. Head: normocephalic, atraumatic Eyes: normal inspection ENT: hearing grossly normal Respiratory/Chest: lungs clear to auscultation, no accessory muscle use Cardiovascular: regular rate, rhythm, no edema, no murmur Abdomen/GI: normal bowel sounds, non tender, soft Extremities/Musculoskelatal: normal inspection, no calf tenderness, no pedal edema Neurologic/Psych: no motor/sensory deficits, alert, oriented x 3, anxious Spine: Mild tenderness in thoracic region Skin: normal color Lymphatic: no adenopathy Lab data as noted below. ASSESSMENT & PLAN: Patient is a 66 Yr old male with PMH of Hyperlipidemia, hypothyroidism, former smoker was a direct admit from oncology office (Dr.Nilesh Scales) for evaluation of lung mass and likely metastatic disease to the bone. Patient was evaluated by orthopedic surgery for clavicular and shoulder pain as outpatient and CT scan performed showing lytic bone lesions of the left clavicle and eft upper lobe spiculated mass with lytic lesions of multiple thoracic levels. Bone scan showed findings suggestive of metastatic bone disease. Patient complained of back and clavicular pain associated with shallow breathing. Patient denied any weight loss, change in appetite, hemoptysis, productive cough, night sweats but did complain of diffuse bone pain. Stage IV adenocarcinoma of lung with diffuse metastatic disease Former smoker quit at age of 23 CT scan shows multiple lytic lesions in left clavicle, sternum, ribs and spine Also left upper lobe lung mass seen severe central canal narrowing at T4 level S/P bronchoscopy and left upper lobe biopsy Repeat CXR: No pneumothorax Pain Control, Oxygen support, bowel regimen for constipation CT surgery, Spine Surgery and radiation oncology following MRI thoracic spine: Extensive metastatic disease, Large metastatic deposit at T3-T4 with epidural extension, secondary spinal canal narrowing MRI Brain:At least 3 calvarial metastatic lesions are identified. No intracranial pathology Minimize Narcotic use secondary to constipation Appreciate Heme oncology input Poor Prognosis Pathology: Findings suggestive adenocarcinoma Patient contemplating to have second opinion from [facility] for possible surgery Hyperlipidemia Continue statin Hypothyroidism Continue Levothyroxine DVT px Lovenox SQ Disposition: Plan to discharge home today Vital Signs: Date Time Temp Pulse Resp B/P Pulse Ox O2 Delivery O2 Flow Rate FiO2 03/30/16 08:15 Room Air 03/30/16 07:55 36.7 72 18 145/90 99 Room Air 03/30/16 04:49 36.7 72 16 137/90 95 Room Air 03/30/16 00:30 36.4 69 18 144/92 99 Room Air 03/30/16 00:00 Room Air 03/29/16 20:00 Room Air 03/29/16 19:42 36.4 74 18 136/84 100 Room Air 03/29/16 16:05 Room Air 03/29/16 15:27 36.6 71 18 138/84 99 Room Air 03/29/16 11:40 36.5 64 16 132/67 99 Room Air Lab Results: Results Past 24 Hours Test 03/30/16 05:15 03/30/16 09:13 Range/Units White Blood Count 6.88 4.8-10.8 K/uL Red Blood Count 4.44 4.7-6.1 M/uL Hemoglobin 12.6 14.0-18.0 g/dL Hematocrit 38.1 42-52 % Mean Corpuscular Volume 85.8 80-100 fL Mean Corpuscular Hemoglobin 28.4 25-34 pg Mean Corpuscular Hemoglobin Concent 33.1 32-36 g/dl RDW Standard Deviation 43.9 36.4-46.3 fL RDW Coefficient of Variation 14.0 11.5-14.5 % Platelet Count 259 130-400 K/uL Mean Platelet Volume 9.7 7.4-10.4 fL Creatinine 1.10 0.60-1.40 mg/dl Est Creatinine Clear Calc Drug Dose 70.6 ml/min Estimated GFR () 79.5 Estimated GFR (Non- 68.6
[2016-03-30] MEDS ORDERED: SENN8.6T7 PO (10:21)
[2016-03-30] MEDS ORDERED: HYDR2TAB48 PO (10:21)
[2016-03-30] MEDS ORDERED: ONDA8TAB62 SL (10:21)
--- NOTE | 2016-03-30 10:35 | Discharge Instructions ---
Discharge Instructions Admission Reason for Admission: Lung Mass With Bone Met Discharge Discharge Diagnosis / Problem: Stage IV Metastatic Adenocarcionoma Discharge Goals Goal(s): Decrease discomfort, Improve function, Improve disease control Activity Recommendations Activity Limitations: as noted below Lifting Limitations: until after follow-up appointment (Do not lift any heavy weights. Please follow up with your Spine surgery for further recommendations) Driving or Machine Use: Do not drive until cleared by your physician and while on Narcotic pain medications . Instructions / Follow-Up Instructions / Follow-Up Follow up with on Apr 05 2016 at 9:10 am Follow up with Dr.Nilesh Scales in 2 weeks Follow up with Dr.Veeral Scales in 2 weeks Follow up with SPEP (Blood test) which is pending at the time of discharge. Seek immediate medical attention if your symptoms worsen Current Hospital Diet Patient's current hospital diet: Regular Diet Discharge Diet Recommended Diet: Regular Diet Procedures Procedures Performed: navigational bronchoscopy with biopsies Pending Studies Studies pending at discharge: yes List of pending studies: SPEP Medical Emergencies . Who to Call and When: Medical Emergencies: If at any time you feel your situation is an emergency, please call 911 immediately. . Non-Emergent Contact Non-Emergency issues call your: Primary Care Provider, Oncologist Call Non-Emergent contact if: you have a fever, your pain is worsening, you have any medication questions . . "Provider Documentation" section prepared by Shekhar Yo. VTE Core Measure Inpt VTE Proph given/why not?: Enoxaparin (Lovenox)SQ
[2016-03-30 10:43] VITALS: BP 145/90; PULSE 72; TEMP 36.7; O2SAT 99
--- NOTE | 2016-03-30 11:10 | SURGERY PROGRESS NOTE ---
DATE: 03/30/2016 Mr. Urban was seen today. I want to go over our final pathology results. This is definitely an adenocarcinoma of the lung. TTF-1 was positive. In addition, while we did not get a great deal of tissue, there was enough to send off for molecular analysis. EGFR, ALK, KRAS and PDL1 receptors will be evaluated. It is unclear whether there is enough tissue to see that for sure. At any rate, Mr. Urban apparently is being discharged, which I think is appropriate. He is scheduled to meet with a multidisciplinary team from [facility] on 04/02/2016.
--- NOTE | 2016-03-30 12:26 | Discharge Summary ---
Discharge Summary Admission Date: Mar 24, 2016 at 17:57 Discharge Date: Mar 30, 2016 Discharge Disposition: Home Principal Diagnosis: Stage IV adenocarcinoma of lung with diffuse metastatic disease Secondary Diagnoses/Problems: Hyperlipidemia, Hypothyroidism Procedures: MRI T spine; IMPRESSION: 1. Extensive metastatic disease 2. Large metastatic deposit at the T3 and T4 levels with epidural extension and secondary spinal canal narrowing 3. Mild epidural extension at the T8 level. 4. 3 cm left upper lobe pulmonary mass consistent with neoplasm CT T spine: 1. 3 cm spiculated left upper lobe pulmonary mass, consistent with a lung carcinoma 2. Extensive lytic bony metastasis involving every thoracic vertebra, as well as the L1 vertebra. 3. Extensive epidural disease at the L4-L5 level with secondary cord compression. The L4 mass measures 4.6 x 3.8 cm. 4. Mild anterior vertebral disease the T8 level. 5. Innumerable bilateral tiny pulmonary nodules CXR; There is a bronchoscopic catheter projected over a left upper lobe pulmonary mass MRI Brain; 1. There is no acute intracranial abnormal. Specifically, there is no evidence of intracranial metastatic disease. 2. At least 3 calvarial metastatic lesions are identified. 3. There is an 8 mm simple appearing ovoid cystic lesion in the sella, likely representing a small Rathke's cleft cyst. This is of doubtful significance. Bronchoscopy and left upper lobe biopsy no complications LUNG, LEFT UPPER LOBE, BRONCHIAL WASHING: MALIGNANT CELLS PRESENT CONSISTENT WITH AN ADENOCARCINOMA. Consultations: CT surgery Spine Surgery Radiation oncology Heme Oncology Medication Reconciliation New Medications: Hydromorphone Hcl (Dilaudid) 2 Mg Tab 2 MG PO Q6 PRN for Pain, #30 TAB Ondansetron Odt (Zofran Odt) 8 Mg Soltab 8 MG SL Q6H PRN for Nausea, #30 TAB Sennosides-Docusate Sodium (Senokot S) 1 Tab Tab 1 TAB PO BID PRN for Constipation, #30 TAB 1 Refill Continued Medications: Levothyroxine Sodium (Levothyroxine Sodium) 88 Mcg Tab 1 TAB PO DAILY for 30 Days, #30 TAB 5 Refills Lorazepam (Ativan) 1 Mg Tab 1 MG PO Q6H for 30 Days, #120 TAB Melatonin (Melatonin Maximum Strengt) 5 Mg Tab 1 TAB PO HS for 30 Days, #30 TAB Simvastatin (Zocor) 80 Mg Tab 1 TAB PO DAILY for 30 Days, #30 TAB 5 Refills Tadalafil (Cialis) 10 Mg Tab 10 MG PO UD for 30 Days, TAB Discontinued Medications: Hydrocodone/Acetaminophen 5MG/325MG ([place] 5MG/325MG) Tab 1 TABLET PO Q6 PRN for Pain for 30 Days, TAB Admission Information HPI (per Admitting provider): This is a 66 year old male with PMH of HLD, hypothyroidism was sent over by Dr. Scales, oncology, for evaluation of a lung mass and likely metastatic disease to the bone. Patient had been seeing orthopedic surgery regarding clavicular and shoulder pain; had a CT scan performed showing lytic bone lesions of the left clavicle; CT chest was later performed showing a 3.2 x 1.8 cm left upper lobe spiculated mass as well as lytic lesions of multiple thoracic levels; bone scan performed showing increasing activity at the thoracolumbar and clavicular regions. Patient was sent over to get a bronchoscopy and tissue diagnosis as well as evaluation for his lytic lesions and T10 compression fracture. Patient states his main symptoms are the back pain, clavicular pain and he now noticed shallower breathing. Denies chest pain Physical Exam (per Admitting): General Appearance: + mild distress Head: normocephalic, atraumatic Eyes: normal inspection ENT: hearing grossly normal Respiratory/Chest: lungs clear, + respiratory distress (mild respiratory distress), + accessory muscle use Cardiovascular: regular rate, rhythm, no edema, no murmur Abdomen/GI: normal bowel sounds, non tender, soft Extremities/Musculoskelatal: normal inspection, no calf tenderness, no pedal edema Neurologic/Psych: no motor/sensory deficits, alert, oriented x 3, + pertinent finding (slightly anxious) Skin: normal color Lymphatic: no adenopathy Hospital Course Patient is a 66 Yr old male with PMH of Hyperlipidemia, hypothyroidism, former smoker was a direct admit from oncology office (Dr.Nilesh Scales) for evaluation of lung mass and likely metastatic disease to the bone. Patient was evaluated by orthopedic surgery for clavicular and shoulder pain as outpatient and CT scan performed showing lytic bone lesions of the left clavicle and eft upper lobe spiculated mass with lytic lesions of multiple thoracic levels. Bone scan showed findings suggestive of metastatic bone disease. Patient complained of back and clavicular pain associated with shallow breathing. Patient denied any weight loss, change in appetite, hemoptysis, productive cough, night sweats but did complain of diffuse bone pain. On further investigations patient was found to have Stage IV adenocarcinoma of lung with diffuse metastatic disease. Also central canal narrowing at T4 levels. Patient had no neurological deficits but had persistent back pain. Surgery could not done given his extensive disease. Patient did not prefer to be managed conservatively but wanted to get invasive procedure done to stabilize his T4 disease. He contemplated to have second opinion from [facility] for possible surgery. Patient was discharged home and advised to follow up with his oncologist as outpatient. Stage IV adenocarcinoma of lung with diffuse metastatic disease Former smoker quit at age of 23 CT scan shows multiple lytic lesions in left clavicle, sternum, ribs and spine Also left upper lobe lung mass seen severe central canal narrowing at T4 level S/P bronchoscopy and left upper lobe biopsy Repeat CXR: No pneumothorax Pain Control, Oxygen support, bowel regimen for constipation CT surgery, Spine Surgery and radiation oncology following MRI thoracic spine: Extensive metastatic disease, Large metastatic deposit at T3-T4 with epidural extension, secondary spinal canal narrowing MRI Brain:At least 3 calvarial metastatic lesions are identified. No intracranial pathology Minimize Narcotic use secondary to constipation Appreciate Heme oncology input Poor Prognosis Pathology: Findings suggestive adenocarcinoma Patient contemplating to have second opinion from [facility] for possible surgery SPEP results pending at time of discharge Hyperlipidemia Continue statin Hypothyroidism Continue Levothyroxine DVT px Lovenox SQ Disposition: Plan to discharge home today Total time spent on discharge = This includes examination of the patient, discharge planning, medication reconciliation, and communication with other providers. Discharge Instructions Discharge Instructions Admission Reason for Admission: Lung Mass With Bone Met Discharge Discharge Diagnosis / Problem: Stage IV Metastatic Adenocarcionoma Discharge Goals Goal(s): Decrease discomfort, Improve function, Improve disease control Activity Recommendations Activity Limitations: as noted below Lifting Limitations: until after follow-up appointment (Do not lift any heavy weights. Please follow up with your Spine surgery for further recommendations) Driving or Machine Use: Do not drive until cleared by your physician and while on Narcotic pain medications . Instructions / Follow-Up Instructions / Follow-Up Follow up with on Apr 05 2016 at 9:10 am Follow up with Dr.Nilesh Scales in 2 weeks Follow up with Dr.Veeral Scales in 2 weeks Follow up with SPEP (Blood test) which is pending at the time of discharge. Seek immediate medical attention if your symptoms worsen Current Hospital Diet Patient's current hospital diet: Regular Diet Discharge Diet Recommended Diet: Regular Diet Procedures Procedures Performed: navigational bronchoscopy with biopsies Pending Studies Studies pending at discharge: yes List of pending studies: SPEP Medical Emergencies . Who to Call and When: Medical Emergencies: If at any time you feel your situation is an emergency, please call 911 immediately. . Non-Emergent Contact Non-Emergency issues call your: Primary Care Provider, Oncologist Call Non-Emergent contact if: you have a fever, your pain is worsening, you have any medication questions . . "Provider Documentation" section prepared by Shekhar Yo. VTE Core Measure Inpt VTE Proph given/why not?: Enoxaparin (Lovenox)SQ
[2016-04-01 13:38] LABS: ALBUMIN 3.7 G/DL (3.8-4.8); GAMMA GLOBULIN 1.3 G/DL (0.8-1.7); TOTAL PROTEIN 7.4 G/DL (6.2-8.3)
--- NOTE | 2016-04-03 12:42 | OPERATIVE REPORT ---
DATE OF OPERATION: 03/26/2016 DATE OF PROCEDURE: 03/26/2016. REASON FOR PROCEDURE: Left upper lobe mass with apparent osseous METS. PROCEDURE: Navigational bronchoscopy with biopsy, left upper lobe mass. SURGEON: Dr. Berg. SENIOR VICE PRESIDENT: Ryan Trinh PA-C. ANESTHESIA: General anesthesia with endotracheal intubation. INDICATION FOR THE PROCEDURE AND FINDINGS: Jose David Urban is a 66-year-old male who has a history of smoking in the distant past who noted pain in his left shoulder while working out and was found to have metastatic appearing lesions throughout his skeleton including his left clavicle, sternum and multiple vertebral bodies. I was asked to see him as we did not have a tissue diagnosis. He has a left upper lobe mass. At this point, we had made a decision to offer him a navigational bronchoscopy with biopsy. On 03/26/2016, the patient was brought to the operating room and underwent an uncomplicated navigational bronchoscopy. I was easily able to navigate to this mass and did multiple needle brushes and forceps biopsies as well as bronchial washings. He tolerated it well. PROCEDURE: The patient was brought to the operating room and laid in the supine position. General anesthesia induced and endotracheal intubation was performed. After appropriate prophylactic antibiotics had been given and timeout called the fiberoptic bronchoscope was placed. There were no endobronchial lesions in the right or left endobronchial tree out to the tertiary bronchials. I then placed a navigational probe and registered the airways. I then went into the left upper lobe bronchus and with the use of the superDimension electromagnetic navigational bronchoscopy system I was able to get directly to the mass. This was confirmed with the use of a radial ultrasound probe. Under thoracoscopic guidance, I then did several brushings as well as needle aspirations and biopsies with forceps and did touch preps with these. We did bronchial washings. There was very little in the way of bleeding. I slowly removed the bronchoscope. He tolerated it well I attest to the content of the Intraoperative Record and any orders documented therein. Any exceptions are noted below. MTDD
[2016-04-04] MEDS ORDERED: LORA-741 PO (17:47)
[2016-04-04] MEDS ORDERED: [UNRECOGNIZED DRUG - CODE] PO (17:49)
== END 2016-03-30 11:50 | disposition home or self-care (01) | DRG 181 ==
LOC: C.4E 17:57
PROVIDERS: ADMIT Internal Medicine; ATTEND Internal Medicine
PROC: 0BB88ZX Excision of Left Upper Lobe Bronchus, Via Natural or Artificial Opening Endoscopic, Diagnostic (ICD-10-PCS; principal; 2016-03-26 13:15)
DX: C34.12 Malignant neoplasm of upper lobe, left bronchus or lung (principal); C79.51 Secondary malignant neoplasm of bone; M84.58XA Pathological fracture in neoplastic disease, other specified site, initial encounter for fracture; E03.9 Hypothyroidism, unspecified; E78.5 Hyperlipidemia, unspecified; E78.00 Pure hypercholesterolemia, unspecified; D64.9 Anemia, unspecified; K59.00 Constipation, unspecified; M54.6 Pain in thoracic spine; Z87.891 Personal history of nicotine dependence

== ENCOUNTER → 2016-05-21 | Outpatient (CLI) | payer OTHER, MEDICARE ==
[~2016-05-21] MED LIST: GADAVIST IV PRN; LEVO88TA3 PO; MRPSR/15 PO; ONDA8TAB62 SL; OXYC1TAB3 PO; SENN8.6T7 PO; SIMV80TA5 PO; [UNRECOGNIZED DRUG - CODE] PO
--- NOTE | 2016-05-21 07:30 | DIAGNOSTIC IMAGING REPORT ---
CT OF THE CHEST WITH IV CONTRAST CLINICAL HISTORY: LUNG CA COMPARISON STUDY: 03/19/2016 TECHNIQUE: Following the IV administration of 93 mL of Optiray-320, CT of the thorax was performed from the thoracic inlet to the lung bases. Images are reviewed in the axial, sagittal, and coronal planes. IV contrast was administered without complication. CT DOSE: FINDINGS: Thyroid: Imaged portions of the thyroid gland are normal in appearance. Thoracic aorta: The ascending thoracic aorta measures 38 mm in diameter. Pulmonary vasculature: The pulmonary trunk is normal in caliber. There are no central filling defects identified to suggest pulmonary embolus. Note that this examination was not protocoled for the evaluation of pulmonary emboli. HEART: The heart is normal in size and configuration, without pericardial effusion. Lungs and pleural spaces: There is an irregularly marginated 2.5 cm left upper lobe pulmonary mass. This remain similar in size to the preceding study. There is an adjacent 5 mm satellite nodule. There is scattered bilateral miliary nodules. There is a small left pleural effusion and trace right pleural effusion. Mediastinum: There is no mediastinal lymphadenopathy. Rosi: There is no evidence of pathologic hilar adenopathy Axilla: Clear. Upper abdomen: There is a left lobe hepatic cyst. There is a 12 cm nonspecific splenic hypodensity. Skeletal structures: There are postsurgical changes present within the thoracic spine. There is extensive lytic bone disease which appears progressive. IMPRESSION: 1. 2.5 cm spiculated left upper lobe pulmonary mass, consistent with a primary bronchogenic carcinoma 2. Innumerable bilateral miliary pulmonary nodules 3. Progressive lytic bone disease. With areas of suspected epidural extension. There is tumor involving the right T12-L1, and L1-L2 neural foramen. 4. New small left pleural effusion and trace right pleural effusion 5. Enlarging splenic hypodense lesion Electronically signed by: Tc Alvarez M.D. 05/21/2016 7:29 AM Dictated Date/Time: 05/21/2016 7:17 AM
--- NOTE | 2016-05-21 08:07 | DIAGNOSTIC IMAGING REPORT ---
CT OF THE ABDOMEN AND PELVIS WITH CONTRAST CLINICAL HISTORY: Non-small cell lung cancer. COMPARISON STUDY: CT of the abdomen and pelvis March 19, 2016. TECHNIQUE: Following IV administration of 93 mL of Optiray-320, axial images of the abdomen and pelvis were obtained from the lung bases to the proximal femurs. Images were reviewed in the axial, sagittal, and coronal planes. IV contrast was administered without complication. CT DOSE: 773.36 mGy.cm FINDINGS: This study is mildly compromised by motion artifact. A 2.4 cm left hepatic lobe cyst is noted. No hepatic metastases are identified. A 1.3 cm hypodense splenic lesion has mildly increased in size since exam of March 19, 2016 when it measured 1.1 cm. No enlarged abdominal or pelvic lymph nodes are present. There is no evidence for a bowel obstruction. There is sigmoid diverticulosis without convincing evidence for acute diverticulitis. The prostate is moderately enlarged. There is no pneumatosis, free air or portal venous gas. There has been moderate progression of extensive lytic metastatic disease since exam of March 19, 2016. A 4.2 cm metastasis within the L1 vertebral body previously measured 3.7 cm. There is a large destructive lesion within the right pedicle of L1. There is associated right neural foraminal narrowing at the T12-L1 and L1-L2 levels. This has progressed. An index right iliac bone lesion measures 3.3 cm. It previously measured 2.7 cm. An L1 pathologic fracture is again noted. No additional pathologic fractures are identified. Sacral lesions have increased in size. IMPRESSION: 1. Moderate progression of extensive lytic skeletal metastatic disease since exam of March 19, 2016. Mild epidural extension of tumor at the L1 level with right T12-L1 and L1-L2 neural foraminal narrowing due to a right L1 pedicle metastasis. Redemonstration of L1 pathologic compression fracture. 2. Slight increase in size of a 1.3 cm splenic lesion which may reflect a metastasis. Electronically signed by: Neal Ocampo M.D. 05/21/2016 8:06 AM Dictated Date/Time: 05/21/2016 7:51 AM
--- NOTE | 2016-05-21 09:25 | DIAGNOSTIC IMAGING REPORT ---
MRI OF THE THORACIC SPINE WITH AND WITHOUT CONTRAST CLINICAL HISTORY: Metastatic lung cancer. COMPARISON STUDY: Thoracic spine MRI March 25, 2016. TECHNIQUE: Utilizing a 1.5 Elaine magnet and dedicated coil, multiplanar, multiecho imaging of the thoracic spine was performed pre and postcontrast administration. Injection of 9 cc of Gadavist IV was uneventful. FINDINGS: Interval cervicothoracic decompression and fusion is noted. Left posterior element screws within the lower cervical spine are noted with bilateral pedicle screws at the T2, T6 and T7 levels. There is a large operative bed fluid collection that measures approximately 16.5 x 9.3 x 7.6 cm. This demonstrates mild peripheral enhancement. This extends from the laminectomy site to the subcutaneous tissues. Numerous areas of marrow replacement are again noted. There has been mild progression of numerous skeletal metastases since MRI of March 25, 2016. Multiple pathologic compression fractures are noted, including fractures of T3, T4, T5, T10, T11 and L1. Thoracic cord signal is suboptimally assessed on this exam due to artifact from the spinal hardware. A small 1.4 x 0.4 cm suspected anterior epidural fluid collection is noted posterior to the T4 vertebral body. The amount of epidural tumor has diminished since exam of March 25, 2016. Stenosis at the T4 level has improved status post decompression. There is no high-grade central canal stenosis on this exam. There is minimal epidural extension of tumor at the L1 level with narrowing of the right T12-L1 and L1-L2 neural foramen. This is slightly increased. A left pleural effusion and no left upper lobe mass are better depicted on the chest CT. IMPRESSION: 1. Status post cervicothoracic fusion and decompression. Large operative bed fluid collection, measuring approximately 16.5 x 9.3 x 7.6 cm. This may reflect a seroma although is nonspecific and a pseudomeningocele could have a similar imaging appearance. A hematoma or abscess is considered less likely. 2. Interval improvement in central canal stenosis at the T4 level since prior MRI. Interval decrease in epidural tumor. Tiny nonspecific anterior epidural fluid collection at the T4 level. 3. Mild progression of extensive skeletal metastatic disease with multiple thoracic and lumbar spine compression fractures, as described above. Electronically signed by: Neal Ocampo M.D. 05/21/2016 9:24 AM Dictated Date/Time: 05/21/2016 9:06 AM
== END | disposition home or self-care (01) ==
LOC: C.CTS 06:26
PROVIDERS: ATTEND Internal Medicine Hematology & Oncology
DX: C34.90 Malignant neoplasm of unspecified part of unspecified bronchus or lung (principal); D73.89 Other diseases of spleen; M84.48XA Pathological fracture, other site, initial encounter for fracture; R91.1 Solitary pulmonary nodule; J90 Pleural effusion, not elsewhere classified

== ENCOUNTER 2016-06-02 16:41 | Emergency (ER) | payer OTHER, MEDICARE ==
[~2016-06-02 16:41] MED LIST changes: -GADAVIST IV PRN; -MRPSR/15 PO; -OXYC1TAB3 PO
[2016-06-02 16:43] VITALS: Ht 182.9 cm
[2016-06-02] MEDS ORDERED: METOCLOPRAMIDE HCL INJ 5 MG/ML 2 ML VIAL IV STA (17:14)
[2016-06-02] MEDS ORDERED: SODIUM CHLORIDE 0.9% 500ML 500 ML IV STA (17:14)
[2016-06-02] MEDS ORDERED: HYDROmorphone INJ 1 MG/ML SYR IV STA ×2 (17:14→19:00)
[2016-06-02] MEDS ORDERED: OPTIRAY 320 IV PRN (17:15)
[2016-06-02] MEDS ORDERED: MRPSR/15 PO (17:16)
[2016-06-02] MEDS ORDERED: OXYC1TAB3 PO (17:16)
--- NOTE | 2016-06-02 17:18 | EMERGENCY ROOM VISIT NOTE ---
History Report prepared by Marilee: Abeba Arroyo Under the Supervision of: Dr. Eric Gannon M.D. First contact with patient: 16:59 Chief Complaint: CONSTIPATION Stated Complaint: INTESTINAL BLOCKAGE CONCERN History of Present Illness The patient is a 66 year old male who presents to the Emergency Room with complaints of constant constipation for the past 9-10 days. The patient states that he has not had a bowel movement in 9-10 days. He has been taking laxatives without any relief. Today he tried using an enema and states, "the only thing that came out is what went in." He reports some lower abdominal pain that he rates as a 7/10 in severity. The patient was [facility] for [facility] evaluation. He states that they were concerned for a bowel obstruction. The patient is currently being treated for lung cancer. He is taking a chemotherapy drug and recently had radiation therapy. He also recently had spinal surgery. He is currently taking oxycodone and morphine. The patient has a history of hernia surgery but denies any other previous abdominal surgeries. Source of History: patient Onset: 9-10 days ago Position: abdomen Symptom Intensity: 7/10 Quality: other (constipation) Timing: constant Associated Symptoms: + abdominal pain Review of Systems See HPI for pertinent positives & negatives. A total of 10 systems reviewed and were otherwise negative. Past Medical & Surgical Medical Problems: (1) Adenocarcinoma of left lung, stage 4 (2) Fracture of thoracic spine (3) Lung mass (4) Secondary malignant neoplasm of bone and bone marrow (5) Subcutaneous nodule Family History Non-pertinent due to advanced age. Social History Smoking Status: Former Smoker Marital Status: Housing Status: lives with significant other Occupation Status: retired Current/Historical Medications Scheduled Levothyroxine Sodium (Levothyroxine Sodium), 1 TAB PO DAILY Morphine Sulfate (Morphine Sulfate ER), 15 MG PO Q8 Oxycodone Ir (Roxicodone Ir), 1-2 TAB PO Q4H Simvastatin (Zocor), 1 TAB PO DAILY Scheduled PRN Ondansetron Odt (Zofran Odt), 8 MG SL Q6H PRN for Nausea Sennosides-Docusate Sodium (Senokot S), 1 TAB PO BID PRN for Constipation Allergies Coded Allergies: No Known Allergies (Unverified , 1/15/17) Physical Exam Vital Signs Date Time Temp Pulse Resp B/P Pulse Ox O2 Delivery O2 Flow Rate FiO2 06/02/16 21:59 36.8 68 20 123/78 96 06/02/16 21:28 68 20 96 Room Air 06/02/16 20:31 68 06/02/16 20:26 69 06/02/16 20:21 71 06/02/16 20:16 72 06/02/16 20:06 30 06/02/16 20:01 71 20 06/02/16 19:56 72 15 06/02/16 19:51 13 06/02/16 19:31 76 06/02/16 19:26 75 13 06/02/16 19:21 75 8 06/02/16 19:16 78 17 06/02/16 19:11 75 12 06/02/16 19:06 77 14 06/02/16 19:01 82 10 06/02/16 18:41 85 06/02/16 18:36 74 18 06/02/16 18:31 67 14 06/02/16 18:26 73 16 06/02/16 18:21 72 14 06/02/16 18:16 70 13 06/02/16 18:11 71 13 06/02/16 18:06 67 06/02/16 18:06 68 17 06/02/16 16:43 36.8 102 18 123/78 96 Room Air Physical Exam GENERAL: Patient is a healthy-appearing well-nourished 66 year old male. HEAD: Normocephalic atraumatic EYES: Ocular movements intact pupils equal and react to light OROPHARYNX mucous membranes are moist no exudates present no erythema or edema present NECK: Supple no nuchal rigidity CHEST: Good equal expansion LUNGS: Clear and equal to auscultation CARDIAC: Normal S1 and S2 ABDOMEN: Soft nontender no guarding BACK: No CVA tenderness EXTREMITIES: No pain upon palpation normal muscle strength in all groups no clubbing cyanosis or edema NEURO: Patient is following commands is answering questions appropriately. Alert and oriented x3 Cranial Nerves 2-12 grossly intact Medical Decision & Procedures ER Provider Diagnostic Interpretation: Radiology results as stated below per my review and radiologist interpretation: CT OF THE ABDOMEN AND PELVIS WITH CONTRAST CLINICAL HISTORY: No recent bowel movement. Abdominal pain. Lung cancer. COMPARISON STUDY: CT of the abdomen and pelvis May 21, 2016. TECHNIQUE: Following IV administration of 119 mL of Optiray-320, axial images of the abdomen and pelvis were obtained from the lung bases to the proximal femurs. Images were reviewed in the axial, sagittal, and coronal planes. IV contrast was administered without complication. Oral contrast was administered. CT DOSE: 862.60 mGycm FINDINGS: Numerous lytic lesions throughout visualized skeletal structures are again noted, including pathologic thoracic and lumbar spine compression fractures, as shown on CT of May 21, 2016. These are similar to prior exam. There is a left hepatic lobe cyst. A hypodense splenic lesion is similar to prior exam. The adrenal glands, kidneys and pancreas are normal. There is no hydronephrosis. There is no biliary or pancreatic ductal dilatation with there is no evidence for a bowel obstruction. There is a large amount of stool within the colon. There is no significant stool within the rectum. There is extensive sigmoid diverticulosis. There is mild pericolonic infiltration. There is no free air or abscess. The prostate is moderately enlarged. IMPRESSION: 1. Large amount of stool within the colon. No significant stool within the rectum. No bowel obstruction. 2. Extensive sigmoid diverticulosis with possible mild pericolonic infiltration. Acute sigmoid diverticulosis would be difficult to exclude. No free air or abscess. 3. No significant change in extensive skeletal metastatic disease since exam of May 21, 2016, as described above. Electronically signed by: Neal Ocampo M.D. 06/02/2016 8:30 PM Dictated Date/Time: 06/02/2016 8:23 PM CHEST ONE VIEW PORTABLE CLINICAL HISTORY: Abdominal pain. Lung cancer. COMPARISON STUDY: Chest CT May 21, 2016. FINDINGS: A cervicothoracic fusion is noted. Cardiac size is normal. There is no evidence of pulmonary edema. Mediastinal contours are stable. No consolidation is identified to suggest pneumonia. A small left pleural effusion is present. The innumerable pulmonary nodules and CT of May 21, 2016 are not well visualized on this exam, likely due to technique. The irregular left upper lobe nodule is again noted. This is better depicted on prior CT. IMPRESSION: 1. Small left pleural effusion. 2. Redemonstration of the spiculated left upper lobe nodule which is suspicious for malignancy, as shown on CT of May 21, 2016. Electronically signed by: Neal Ocampo M.D. 06/02/2016 5:50 PM Dictated Date/Time: 06/02/2016 5:48 PM Laboratory Results 06/02/16 17:20 Red Blood Count 4.07, Mean Corpuscular Volume 80.6, Mean Corpuscular Hemoglobin 26.3, Mean Corpuscular Hemoglobin Concent 32.6, Mean Platelet Volume 8.9, Neutrophils (%) (Auto) 70.3, Lymphocytes (%) (Auto) 8.2, Monocytes (%) (Auto) 16.2, Eosinophils (%) (Auto) 4.7, Basophils (%) (Auto) 0.4, Neutrophils # (Auto ) 3.61, Lymphocytes # (Auto) 0.42, Monocytes # (Auto) 0.83, Eosinophils # (Auto ) 0.24, Basophils # (Auto) 0.02 06/02/16 17:20 Test 06/02/16 17:20 06/02/16 18:50 White Blood Count 5.13 K/uL (4.8-10.8) Red Blood Count 4.07 M/uL (4.7-6.1) Hemoglobin 10.7 g/dL (14.0-18.0) Hematocrit 32.8 % (42-52) Mean Corpuscular Volume 80.6 fL (80-100) Mean Corpuscular Hemoglobin 26.3 pg (25-34) Mean Corpuscular Hemoglobin Concent 32.6 g/dl (32-36) Platelet Count 433 K/uL (130-400) Mean Platelet Volume 8.9 fL (7.4-10.4) Neutrophils (%) (Auto) 70.3 % Lymphocytes (%) (Auto) 8.2 % Monocytes (%) (Auto) 16.2 % Eosinophils (%) (Auto) 4.7 % Basophils (%) (Auto) 0.4 % Neutrophils # (Auto) 3.61 K/uL (1.4-6.5) Lymphocytes # (Auto) 0.42 K/uL (1.2-3.4) Monocytes # (Auto) 0.83 K/uL (0.11-0.59) Eosinophils # (Auto) 0.24 K/uL (0-0.5) Basophils # (Auto) 0.02 K/uL (0-0.2) RDW Standard Deviation 44.3 fL (36.4-46.3) RDW Coefficient of Variation 15.0 % (11.5-14.5) Immature Granulocyte % (Auto) 0.2 % Immature Granulocyte # (Auto) 0.01 K/uL (0.00-0.02) Anion Gap 7.0 mmol/L (3-11) Estimated GFR () 89.2 Estimated GFR (Non- 77.0 BUN/Creatinine Ratio 10.0 (10-20) Calcium Level 8.7 mg/dl (8.5-10.1) Total Bilirubin 0.4 mg/dl (0.2-1) Direct Bilirubin 0.1 mg/dl (0-0.2) Aspartate Amino Transf (AST/SGOT) 41 U/L (15-37) Alanine Aminotransferase (ALT/SGPT) 39 U/L (12-78) Alkaline Phosphatase 530 U/L (45-117) Total Protein 8.2 gm/dl (6.4-8.2) Albumin 2.7 gm/dl (3.4-5.0) Lipase 213 U/L (73-393) Urine Color YELLOW Urine Appearance CLEAR (CLEAR) Urine pH 7.0 (4.5-7.5) Urine Specific [place] 1.000 (1.000-1.030) Urine Protein NEG (NEG) Urine Glucose (UA) NEG (NEG) Urine Ketones NEG (NEG) Urine Occult Blood NEG (NEG) Urine Nitrite NEG (NEG) Urine Bilirubin NEG (NEG) Urine Urobilinogen NEG (NEG) Urine Leukocyte Esterase NEG (NEG) Labs reviewed by ED physician. Medications Administered Medications (Trade) Dose Ordered Sig/[place] Route Start Time Stop Time Status Last Admin Dose Admin Sodium Chloride (Nss 500ml) 500 ml @ 999 mls/hr Q31M STAT IV 06/02/16 17:14 06/02/16 17:44 DC 06/02/16 17:23 999 MLS/HR Hydromorphone HCl (Dilaudid Inj) 1 mg NOW STAT IV 06/02/16 17:14 06/02/16 17:16 DC 06/02/16 17:21 1 MG Metoclopramide HCl (Reglan Inj) 10 mg NOW STAT IV 06/02/16 17:14 06/02/16 17:16 DC 06/02/16 17:21 10 MG Hydromorphone HCl (Dilaudid Inj) 1 mg NOW STAT IV 06/02/16 19:00 3/15/17 19:01 DC 06/02/16 19:24 1 MG Ondansetron HCl (Zofran Inj) 4 mg NOW STAT IV 06/02/16 19:00 06/02/16 19:01 DC 06/02/16 19:24 4 MG Polyethylene Glycol/ Electrolytes (Golytely Soln) 1 dose NOW STAT PO 06/02/16 20:47 06/02/16 20:49 DC 06/02/16 21:00 1 DOSE ED Course 1658: Past medical records reviewed. The patient was evaluated in room A11B. A complete history and physical examination was performed. 171: Reglan 10 mg IV, Dilaudid 1 mg IV, NSS 500 ml @ 999 mls/hr IV 173: I reassessed the patient and he is more comfortable. 1811: A repeat abdominal exam reveals a soft, nontender abdomen. 1858: The patient had a bowel movement. He is still complaining of pain. 1899: Zofran 4 mg IV, Dilaudid 1 mg IV 2044: I attempted to disimpact the patient at this time. He did not have any stool in the rectal vault. 2046: Golytely Soln 1 dose PO 2100: Soap suds enema [place] - pt refused, Zofran 4 mg PO 1 homepack - pt refused 2138: I reassessed the patient at this time. He is feeling better and resting comfortably. I discussed the results and treatment plan with the patient. I answered all pertaining questions that he had. He expressed understanding and verbalized agreement. The patient will be discharged home. Medical Decision Differential diagnosis: Etiologies such as appendicitis, diverticulitis, PUD, biliary pathology, UTI, pancreatitis, obstruction, mesenteric ischemia, aortic pathology, infections, inflammatory bowel disease, renal colic, as well as others were entertained. This is a 66-year-old male who presents emergency department complaining of constipation. Serial abdominal examinations were performed on the patient in the emergency department and at no time did the patient exhibited a surgical abdomen. The patient is concerned over intestinal blockage for this reason a CAT scan of the abdomen and pelvis was ordered. CAT scan does not show any evidence of obstruction however the patient does have a large amount of stool throat:. The patient has been trying magnesium citrate at home without any success. I disimpacted the patient myself however no stools found. I recommended that the patient receive enemas in the emergency department and at first he was willing to do this however he then changed his mind. The patient was given GoLYTELY to use at home. I recommended that the patient used 8 ounces every 15 minutes until moving his bowels. Patient will follow-up with gastroenterology. Impression Primary Impression: Constipation Additional Impression: Abdominal pain Scribe Attestation The scribe's documentation has been prepared under my direction and personally reviewed by me in its entirety. I confirm that the note above accurately reflects all work, treatment, procedures, and medical decision making performed by me. Departure Information Dispostion Home / Self-Care Referrals Blas Calero D.O. Forms HOME CARE DOCUMENTATION FORM, IMPORTANT VISIT INFORMATION Patient Instructions Constipation, My [facility] Additional Instructions Take 8 oz of golytly every 15 minutes until moving bowels Over the next 48 hours after the golytely: Take 10 oz bottle of miralax; Add to 16 oz of gatorade Drink continuously until moving creamy stools Clear liquid diet for next 48 hours Return if you develop fevers or pain worsens You have been examined and treated today on an emergency basis only. This is not a substitute for, or an effort to provide, complete comprehensive medical care. It is impossible to recognize and treat all injuries or illnesses in a single emergency department visit. It is therefore important that you follow up closely with Dr Calero. Call as soon as possible for an appointment. Thank you for your time and consideration. I look forward to speaking with you again soon. Please don't hesitate to call us if you have any questions. Problem Qualifiers Primary Impression: Constipation Constipation type: slow transit constipation Qualified Codes: K59.01 - Slow transit constipation Additional Impression: Abdominal pain Abdominal location: generalized Qualified Codes: R10.84 - Generalized abdominal pain
--- NOTE | 2016-06-02 17:51 | DIAGNOSTIC IMAGING REPORT ---
CHEST ONE VIEW PORTABLE CLINICAL HISTORY: Abdominal pain. Lung cancer. COMPARISON STUDY: Chest CT May 21, 2016. FINDINGS: A cervicothoracic fusion is noted. Cardiac size is normal. There is no evidence of pulmonary edema. Mediastinal contours are stable. No consolidation is identified to suggest pneumonia. A small left pleural effusion is present. The innumerable pulmonary nodules and CT of May 21, 2016 are not well visualized on this exam, likely due to technique. The irregular left upper lobe nodule is again noted. This is better depicted on prior CT. IMPRESSION: 1. Small left pleural effusion. 2. Redemonstration of the spiculated left upper lobe nodule which is suspicious for malignancy, as shown on CT of May 21, 2016. Electronically signed by: Neal Ocampo M.D. 06/02/2016 5:50 PM Dictated Date/Time: 06/02/2016 5:48 PM
[2016-06-02 17:55] LABS: BASO % 0.4 %; BASO ABS # 0.02 K/uL (0-0.2); COMPLETE YES; EOS % 4.7 %; HEMATOCRIT 32.8 % (42-52); IG% 0.2 %; LYMPH % 8.2 %; LYMPH ABS # 0.42 K/uL (1.2-3.4); MEAN CELL VOLUME 80.6 fL (80-100); MEAN CORPUSCULAR HEMOGLOBIN 26.3 pg (25-34); MEAN CORPUSCULAR HGB CONC 32.6 g/dl (32-36); MEAN PLATELET VOLUME 8.9 fL (7.4-10.4); MONO % 16.2 %; NEUT % 70.3 %; PLATELET COUNT 433 K/uL (130-400); RED BLOOD COUNT 4.07 M/uL (4.7-6.1); WHITE BLOOD COUNT 5.13 K/uL (4.8-10.8)
[2016-06-02 18:14] LABS: ALT/SGPT 39 U/L (12-78); AST/SGOT 41 U/L (15-37); BLOOD UREA NITROGEN 10 mg/dl (7-18); CALCIUM 8.7 mg/dl (8.5-10.1); CARBON DIOXIDE 27 mmol/L (21-32); CHLORIDE 99 mmol/L (98-107); GLUCOSE 109 mg/dl (70-99); SODIUM 133 mmol/L (136-145)
[2016-06-02 18:17] LABS: ALKALINE PHOSPHATASE 530 U/L (45-117)
[2016-06-02] MEDS ORDERED: ONDANSETRON INJ 2 MG/ML 2 ML VIAL IV STA (19:00)
[2016-06-02 19:25] LABS: URINE APPEARANCE CLEAR (CLEAR); URINE BILIRUBIN NEG (NEG); URINE COLOR YELLOW; URINE NITRITE NEG (NEG); UROBILINOGEN NEG (NEG)
[2016-06-02 19:26] LABS: MANUAL MICROSCOPIC REQUIRED? NO; REVIEW REQ? NO
--- NOTE | 2016-06-02 20:31 | DIAGNOSTIC IMAGING REPORT ---
CT OF THE ABDOMEN AND PELVIS WITH CONTRAST CLINICAL HISTORY: No recent bowel movement. Abdominal pain. Lung cancer. COMPARISON STUDY: CT of the abdomen and pelvis May 21, 2016. TECHNIQUE: Following IV administration of 119 mL of Optiray-320, axial images of the abdomen and pelvis were obtained from the lung bases to the proximal femurs. Images were reviewed in the axial, sagittal, and coronal planes. IV contrast was administered without complication. Oral contrast was administered. CT DOSE: 862.60 mGycm FINDINGS: Numerous lytic lesions throughout visualized skeletal structures are again noted, including pathologic thoracic and lumbar spine compression fractures, as shown on CT of May 21, 2016. These are similar to prior exam. There is a left hepatic lobe cyst. A hypodense splenic lesion is similar to prior exam. The adrenal glands, kidneys and pancreas are normal. There is no hydronephrosis. There is no biliary or pancreatic ductal dilatation with there is no evidence for a bowel obstruction. There is a large amount of stool within the colon. There is no significant stool within the rectum. There is extensive sigmoid diverticulosis. There is mild pericolonic infiltration. There is no free air or abscess. The prostate is moderately enlarged. IMPRESSION: 1. Large amount of stool within the colon. No significant stool within the rectum. No bowel obstruction. 2. Extensive sigmoid diverticulosis with possible mild pericolonic infiltration. Acute sigmoid diverticulosis would be difficult to exclude. No free air or abscess. 3. No significant change in extensive skeletal metastatic disease since exam of May 21, 2016, as described above. Electronically signed by: Neal Ocampo M.D. 06/02/2016 8:30 PM Dictated Date/Time: 06/02/2016 8:23 PM
[2016-06-02] MEDS ORDERED: LAVAGE SOLUTION 4000ML PO STA (20:47)
[2016-06-02] MEDS ORDERED: SOAP SUDS ENEMA PR STA (21:00)
[2016-06-02] MEDS ORDERED: ONDANSETRON HOME PACK 4MG OD TAB PO ONE (21:00)
[2016-06-02 21:59] VITALS: BP 123/78; PULSE 68; TEMP 36.8; O2SAT 96
== END 2016-06-02 22:02 | disposition home or self-care (01) ==
LOC: C.EDB 16:45 → C.EDA 22:02
DX: K59.01 Slow transit constipation (principal); R10.84 Generalized abdominal pain; C34.92 Malignant neoplasm of unspecified part of left bronchus or lung; C79.51 Secondary malignant neoplasm of bone; Z87.891 Personal history of nicotine dependence; Z79.899 Other long term (current) drug therapy

== ENCOUNTER → 2016-07-14 | Outpatient (CLI) | payer OTHER, MEDICARE ==
[~2016-07-14] MED LIST changes: +GADAVIST IV PRN; +LORAZEPAM 2 MG/ML 1 ML VIAL ONE; +MRPSR/15 PO; +NURSING VERBAL MED ORDER ONE; +OXYC1TAB3 PO; -[UNRECOGNIZED DRUG - CODE] PO
[2016-07-14 14:32] VITALS: BP 104/74; PULSE 74; O2SAT 100
--- NOTE | 2016-07-14 16:59 | DIAGNOSTIC IMAGING REPORT ---
MRI OF THE CERVICAL SPINE WITH AND WITHOUT CONTRAST CLINICAL HISTORY: Metastatic non-small cell lung cancer. COMPARISON: Bone scan March 19, 2016. TECHNIQUE: Utilizing a 1.5 Elaine magnet and dedicated coil, multiplanar, multiecho imaging of the cervical spine was performed before and after intravenous administration of 8 of Gadavist. FINDINGS: A multilevel cervicothoracic fusion with posterior decompression is noted. Cervical cord signal and caliber are normal. There is no intracanalicular mass or fluid collection within the cervical canal. Numerous thoracic spine metastases are again noted. The thoracic spine MRI will be reported separately. No epidural spread of tumor is noted within the cervical canal. Visualized portions the posterior fossa are unremarkable. An operative bed fluid collection has slightly decreased in size since exam of May 21, 2016. Mild multilevel degenerative disc disease and facet arthrosis is present with mild central canal stenosis at C4-C5 and C5-C6. There is moderate multilevel neural foraminal stenosis. IMPRESSION: 1. Normal cervical cord signal and caliber. No cervical cord compression. No epidural tumor within the cervical canal. 2. Redemonstration of extensive thoracic spine metastatic disease. Multilevel decompression and cervicothoracic fusion. Slight decrease in size of the large operative bed fluid collection since MRI of May 21, 2016. Electronically signed by: Neal Ocampo M.D. 07/14/2016 4:57 PM Dictated Date/Time: 07/14/2016 4:48 PM
--- NOTE | 2016-07-14 17:06 | DIAGNOSTIC IMAGING REPORT ---
THORACIC SPINE MRI WITH AND WITHOUT CONTRAST HISTORY: Metastatic disease. NON CELL LUNG CANCER TECHNIQUE: Multiplanar multisequence MRI of the thoracic spine was performed both before and after the intravenous administration of contrast. COMPARISON: Thoracic spine MRI 05/21/2016. FINDINGS: Redemonstration of the cervicothoracic decompression and fusion. Left posterior element screws within the lower cervical spine are noted with bilateral pedicle screws at the T2, T6 and T7 levels. There is again noted an operative bed fluid collection that measures approximately 10 x 8 x 6 cm. This has decreased in size. This demonstrates mild peripheral enhancement. This extends from the laminectomy site to the subcutaneous tissues. Numerous areas of marrow replacement are again noted. These are not significantly changed. Multiple pathologic compression fractures are noted, including fractures of T3, T4, T5, T10, T11 and L1. Thoracic cord signal is suboptimally assessed on this exam due to artifact from the spinal hardware. The small suspected anterior epidural fluid collection is noted posterior to the T4 vertebral body is no longer identified. Mild stenosis at the T4 level is not significantly changed. There is no high-grade central canal stenosis on this exam. There is minimal epidural extension of tumor at the L1 level with narrowing of the right T12-L1 and L1-L2 neural foramen. This remains unchanged. A left pleural effusion has resolved. Paramediastinal consolidation has developed in the interval. This could be due to post radiation change. IMPRESSION: 1. Status post cervicothoracic fusion and decompression. The operative bed fluid collection has decreased in size this may reflect a seroma although is nonspecific and a pseudomeningocele could have a similar imaging appearance. A hematoma or abscess is considered less likely. 2. No change in the mild central canal stenosis at the T4 level since prior MRI. The epidural tumor appears similar. The tiny nonspecific anterior epidural fluid collection at the T4 level appears to have resolved.. 3. There is again noted extensive skeletal metastatic disease with multiple thoracic and lumbar spine compression fractures, as described above which appear similar. Electronically signed by: Earle Fisher M.D. 07/14/2016 5:04 PM Dictated Date/Time: 07/14/2016 4:51 PM
--- NOTE | 2016-07-14 17:12 | DIAGNOSTIC IMAGING REPORT ---
LUMBAR SPINE MRI WITH AND WITHOUT CONTRAST HISTORY: NON CELL LUNG CANCER TECHNIQUE: Multiplanar multisequence MRI of the lumbar spine was performed both before and after the intravenous administration of contrast. COMPARISON: None. FINDINGS: For the purpose of the report the L5-S1 disc space will be located on axial image 27 of 29. Multiple metastatic lesions seen throughout the visualized osseous structures including the sacrum. Moderate anterior wedge-shaped compression fracture at L1 appears similar. There is 3 mm of retropulsion of the posterior inferior corner resulting in mild central canal narrowing and moderate right neural foraminal narrowing at this level. Small amount of epidural extension along the right side of the thecal sac at the L1 level due to the metastatic lesion within the right pedicle. However, this does not result significant central canal narrowing. No additional areas of abnormal extension are noted. No additional fractures identified within the lumbar spine. Metastatic lesion within the right pedicle. However, the disc does not result significant central canal narrowing. IMPRESSION: 1. Multiple metastatic lesions seen throughout the lumbar spine including the sacrum. 2. Moderate anterior wedge-shaped compression fracture at L1 which appears similar. There is 3 mm of retropulsion of the posterior inferior corner resulting in mild central canal narrowing and moderate right neural foraminal narrowing at this level. 3. Mild epidural extension of tumor along the right side of the thecal sac at the L1 level due to the metastatic lesion within the right pedicle. However, this does not result significant central canal narrowing. Electronically signed by: Earle Fisher M.D. 07/14/2016 5:10 PM Dictated Date/Time: 07/14/2016 5:04 PM
== END | disposition home or self-care (01) ==
LOC: C.MRI 13:55
PROVIDERS: ATTEND Internal Medicine Hematology & Oncology
DX: C34.90 Malignant neoplasm of unspecified part of unspecified bronchus or lung (principal)

== ENCOUNTER → 2016-07-23 | Outpatient (CLI) | payer OTHER, MEDICARE ==
[~2016-07-23] MED LIST changes: -GADAVIST IV PRN; -LORAZEPAM 2 MG/ML 1 ML VIAL ONE; -NURSING VERBAL MED ORDER ONE
--- NOTE | 2016-07-23 09:40 | DIAGNOSTIC IMAGING REPORT ---
THORACIC SPINE 3 VIEWS ROUTINE CLINICAL HISTORY: Non-small cell lung cancer. COMPARISON STUDY: Thoracic spine CT March 25, 2016, MRI of the thoracic spine July 14, 2016. FINDINGS: A cervicothoracic fusion is noted. An irregular left upper lobe nodule is again noted. Allowing for differences in technique, multiple thoracic spine pathologic fractures are similar to MRI of July 14, 2016. IMPRESSION: 1. No significant change in multiple thoracic spine pathologic compression fracture since MRI of July 14, 2016. 2. Status post cervicothoracic fusion. Stable postoperative appearance. Electronically signed by: Neal Ocampo M.D. 07/23/2016 9:38 AM Dictated Date/Time: 07/23/2016 9:36 AM
== END | disposition home or self-care (01) ==
LOC: C.RAD 09:10
PROVIDERS: ATTEND Internal Medicine Hematology & Oncology
DX: C34.12 Malignant neoplasm of upper lobe, left bronchus or lung (principal); Z98.1 Arthrodesis status

== ENCOUNTER → 2016-09-02 | Outpatient (CLI) | payer OTHER, MEDICARE ==
[~2016-09-02] MED LIST changes: +OPTIRAY 320 IV PRN
--- NOTE | 2016-09-02 11:28 | DIAGNOSTIC IMAGING REPORT ---
CT ABD/PELVIS IV AND ORAL CONT CLINICAL HISTORY: LUNG CANCER COMPARISON STUDY: 06/02/2016 TECHNIQUE: Following the IV administration of 92 mL of Optiray-320, CT scan of the abdomen and pelvis was performed from the lung bases to the proximal femurs. Images are reviewed in the axial, sagittal, and coronal planes. IV contrast was administered without complication. CT DOSE: FINDINGS: Lower chest: There is a nonspecific 27 mm left lower lobe paraspinal airspace opacity. Liver: There is mild hepatic steatosis. This 23 mm cyst within the left lobe. Gallbladder: Unremarkable. Spleen: There is been interval decrease in the size of the splenic hypodense lesions. The largest currently measures 1 cm. Pancreas: Unremarkable. Adrenal glands: Unremarkable. Kidneys: There is symmetric renal cortical enhancement. The kidneys are normal in size without hydronephrosis. Bowel: There is severe colonic diverticulosis. No acute peridiverticular inflammatory changes are visualized. There is fecal retention. There are no findings to indicate acute appendicitis. There are thick-walled proximal jejunal loops. There is gastric antral wall thickening as well as duodenal wall thickening. There is mild dilatation of the proximal small bowel. Peritoneum: There is no intraperitoneal free air or abdominal ascites. There is mild infiltration of the central mesentery. There is small fat-containing right inguinal hernia. Vasculature: The abdominal aorta is normal in course and caliber. Adenopathy: None. Pelvic viscera: There is mild bladder wall thickening. Skeletal structures: Extensive skeletal metastasis are again evident. Most of the lesions appear more sclerotic. IMPRESSION: 1. Extensive skeletal metastasis. Most of the lesions appear more sclerotic than on the preceding study, a finding which may indicate interval healing 2. Extensive diverticulosis. No evidence of acute peridiverticular inflammatory change 3. Mildly dilated duodenum and proximal jejunal loops. There is bowel wall thickening involving the gastric antrum, duodenum, and multiple proximal jejunal loops. The findings are consistent with a nonspecific enteritis 4. 27 mm left lower lobe paraspinal pulmonary airspace opacity 5. Interval decrease in the size of the hypodense splenic lesions. 6. Persistent nonspecific infiltration of the central mesentery Electronically signed by: Tc Alvarez M.D. 09/02/2016 11:26 AM Dictated Date/Time: 09/02/2016 11:16 AM
--- NOTE | 2016-09-02 11:30 | DIAGNOSTIC IMAGING REPORT ---
CHEST CT WITH CONTRAST CT DOSE: 1061.77 mGycm HISTORY: LUNG CANCER CREATININE 1.00 09/02/16 TECHNIQUE: Multiaxial CT images of the chest were performed following the intravenous administration of contrast. COMPARISON: Chest CT 05/21/2016. FINDINGS: The central airways are patent. No pleural effusions. No pneumothorax. Slight decrease in size in the 2.1 cm spiculated left apical nodule. Irregular paramediastinal densities within the mild traction bronchiectasis favor post radiation fibrosis. Cervical lumbar spinal fusion hardware is again noted. No significant change in the multiple destructive osseous metastatic lesions seen throughout the visualized osseous structures. Compression fractures at T3, T4, T5, and T10 are again noted. The T10 compression deformity has slightly progressed. There is also progression of the moderate compression deformity at L1. Increased sclerosis within some of the metastatic lesions may be related to treatment response. Decrease in size in the fluid collection at the laminectomy sites within the upper thoracic spine. Epidural extension of tumor within the upper thoracic spine is not well-visualized due to the metallic artifact and the CT technique. No mediastinal or hilar lymphadenopathy. Mild proximal to mid esophageal thickening favors post radiation changes. Normal caliber thoracic aorta. The central pulmonary arteries are patent. IMPRESSION: 1. Slight decrease in size in the 2.1 cm spiculated nodule within the left upper lobe. 2. Interval development of irregular paramediastinal densities which favor postradiation fibrosis. 3. Slight increased sclerosis within a few of the multiple destructive metastatic osseous lesions. This favors treatment response. 4. Progression of the T10 and L1 pathologic compression deformities. 5. Slight decrease in size in the fluid collection at the laminectomy sites within the thoracic spine. Epidural extension of tumor within the thoracic spine described on the prior study is not well-visualized due to the metallic artifact and CT technique. 6. Mild proximal to mid esophageal thickening which favors post rotation changes. Electronically signed by: Earle Fisher M.D. 09/02/2016 11:28 AM Dictated Date/Time: 09/02/2016 11:16 AM
== END | disposition home or self-care (01) ==
LOC: C.CTS 10:39
PROVIDERS: ATTEND Internal Medicine Hematology & Oncology
DX: C34.12 Malignant neoplasm of upper lobe, left bronchus or lung (principal); R06.02 Shortness of breath; K57.90 Diverticulosis of intestine, part unspecified, without perforation or abscess without bleeding

== ENCOUNTER → 2016-11-25 | Outpatient (CLI) | payer OTHER, MEDICARE ==
[~2016-11-25] MED LIST changes: -ONDA8TAB62 SL
--- NOTE | 2016-11-25 16:24 | DIAGNOSTIC IMAGING REPORT ---
CHEST CT WITH CONTRAST CT DOSE: 1357.17 mGycm HISTORY: Lung cancer. Follow-up. TECHNIQUE: Multiaxial CT images of the chest were performed following the intravenous administration of contrast. A dose lowering technique was utilized adhering to the principles of ALARA. COMPARISON: Chest CT 09/02/2016. FINDINGS: The central airways remain patent. No pneumothorax. No pleural effusions. No significant change in size in the 2.0 cm spiculated left apical nodule. Bilateral paramediastinal fibrotic change has slightly improved. There are 2 stable small patchy/irregular densities at the base of the left lower lobe. Dominant focus measures 1.4 cm on image 238. There is a new 4 mm nodule within the left lower lobe on image 219. This demonstrates a faint groundglass halo. No mediastinal or hilar lymphadenopathy. Normal caliber thoracic aorta. The main pulmonary arteries appear patent. The heart is normal in size. No severe change in the multiple mixed lytic and sclerotic lesions seen throughout the spine, ribs, sternum, and left clavicle. Thoracic spinal fusion hardware is again noted. Compression fractures at T3, T4, T5, T10 remain unchanged. There is also a compression deformity at L1 which is stable. Fluid collection at the laminectomy sites within the upper thoracic spine remains unchanged. Epidural extension of tumor within the upper thoracic spine is not well visualized due to the metallic artifact in CT technique. IMPRESSION: 1. Bilateral paramediastinal fibrotic change has slightly improved. 2. Interval development of a 4 mm indeterminate pulmonary nodule within the left lower lobe. This demonstrates a faint groundglass halo and therefore may represent inflammatory/infectious change. Recommend follow-up to ensure stability or resolution and to exclude the possibility of a developing metastatic focus. 3. Otherwise, no significant change in the metastatic disease as described above. 4. The 2 cm spiculated nodule within the left lung apex remain stable. Electronically signed by: Earle Fisher M.D. 11/25/2016 4:23 PM Dictated Date/Time: 11/25/2016 4:13 PM
--- NOTE | 2016-11-25 18:34 | DIAGNOSTIC IMAGING REPORT ---
ABDOMEN AND PELVIS CT WITH IV AND ORAL CONTRAST CT DOSE: HISTORY: Lung cancer. TECHNIQUE: Multiaxial CT images of the abdomen and pelvis were performed following the use of intravenous and oral contrast. A dose lowering technique was utilized adhering to the principles of ALARA. COMPARISON STUDY: Abdomen and pelvis CT 09/02/2016. FINDINGS: No change in 1.9 cm nodule/opacity within the base of the left lower lobe on image 35 of 476. No significant change in the multiple osteoblastic metastatic lesions seen throughout the visualized skeletal structures. Moderate L1 pathologic compression fracture remains unchanged. No new pathologic fractures identified. Stable cyst within the left hepatic lobe and spleen. No hepatic masses. The adrenal glands, pancreas, gallbladder, and kidneys are unremarkable. Tiny fat-containing umbilical hernia. No retroperitoneal lymphadenopathy. The prostate remains enlarged. Mild bladder wall thickening, unchanged. This may be due to the chronic outlet obstruction from the enlarged prostate. Colonic diverticulosis. No bowel wall thickening or obstruction. Normal appendix. IMPRESSION: 1. No change in the osteoblastic metastatic disease. Stable old moderate compression deformity at L1. 2. Additional chronic findings as described above. 3. No bowel wall thickening or obstruction. 4. Stable 1.9 cm nodule/opacity at the base of left lower lobe. This may be due to an area of scarring or atelectasis. This bears watching on future examinations. Electronically signed by: Earle Fisher M.D. 11/25/2016 6:33 PM Dictated Date/Time: 11/25/2016 6:23 PM
== END | disposition home or self-care (01) ==
LOC: C.CTS 15:51
PROVIDERS: ATTEND Internal Medicine Hematology & Oncology
DX: C34.12 Malignant neoplasm of upper lobe, left bronchus or lung (principal); R91.8 Other nonspecific abnormal finding of lung field

== ENCOUNTER → 2016-12-27 | Outpatient (CLI) | payer OTHER, MEDICARE ==
[~2016-12-27] MED LIST changes: +GADAVIST IV PRN; -OPTIRAY 320 IV PRN
--- NOTE | 2016-12-27 16:43 | DIAGNOSTIC IMAGING REPORT ---
Brain MRI WITH AND WITHOUT CONTRAST HISTORY: NEOPLASM OF Lung, bone METS,ALATORRE,NAUSEA,VOMITING TECHNIQUE: Multiplanar multisequence MRI of the brain was performed both before and after the intravenous administration of contrast. COMPARISON STUDY: None. FINDINGS: Best seen on the coronal T1 postcontrast sequences there are multiple scattered small enhancing lesions within the brain. This includes the yair and medulla. Dominant lesion within the right posterior frontal lobe demonstrates rim enhancement and measures 7 mm. These are consistent with metastatic disease. No mass effect or midline shift. The larger lesions demonstrate a small rim of surrounding vasogenic edema. Dominant lesion within the right posterior frontal lobe demonstrates a punctate focus of increased T1 signal which may represent a small hemorrhagic focus. The ventricles and sulci demonstrate mild age-related involutional changes. There are also a few small scattered calvarial lesions consistent with metastatic disease. Dominant lesion within the left frontal bone measures IMPRESSION: 1. Multiple small scattered nonenhancing lesions within the brain consistent with metastatic disease. 2. There are also a few small scattered metastatic deposits within the calvarium. 3. The dominant 7 mm lesion within the right posterior frontal lobe demonstrates a punctate focus of increased T1 signal which may represent a small hemorrhagic focus. Electronically signed by: Earle Fisher M.D. 12/27/2016 4:41 PM Dictated Date/Time: 12/27/2016 4:34 PM
== END | disposition home or self-care (01) ==
LOC: C.MRI 14:48
PROVIDERS: ATTEND Internal Medicine Hematology
DX: C34.32 Malignant neoplasm of lower lobe, left bronchus or lung (principal); C79.51 Secondary malignant neoplasm of bone; R51 Headache; R11.2 Nausea with vomiting, unspecified

== ENCOUNTER → 2017-03-28 | Outpatient (CLI) | payer OTHER, MEDICARE ==
--- NOTE | 2017-03-28 19:31 | DIAGNOSTIC IMAGING REPORT ---
MRI OF THE BRAIN COMBO CLINICAL HISTORY: Metastatic lung cancer. COMPARISON STUDY: MRI of the brain dated 12/27/2016. TECHNIQUE: MRI of the brain was performed utilizing various T1 and T2-weighted sequences in the axial, sagittal, and coronal planes. Contrast-enhanced sequences were acquired following the administration of 9 cc of Gadavist. FINDINGS: Brain parenchyma: A 5 mm enhancing lesion identified in the right frontal lobe on axial image #24 has decreased in size from 12/27/2016. Intrinsic T1 hyperintensity may represent calcification or trace hemorrhage. No additional enhancing parenchymal lesions are identified on today's examination. There are age-related involutional changes noting minimal patchy subcortical and periventricular microangiopathic disease. There is no mass effect or restricted diffusion to suggest acute ischemia. Vega-white matter differentiation is preserved. No extra-axial fluid collection is seen. The cerebellar tonsils are normal in configuration. Ventricles, sulci, and cisterns: Prominent secondary to involutional change. Pituitary and sella: There is an 8 mm ovoid cystic lesion again seen in the left aspect of the sella. There is no nodular soft tissue component or postcontrast enhancement. The pituitary gland is otherwise normal as imaged. Intracranial vasculature: Normal flow voids are maintained at the skull base. Orbits: The bony orbits are grossly intact. Orbital contents are normal in appearance noting bilateral ocular lens implants. Sinuses and mastoids: Trace mucosal thickening is seen within the maxillary antra in the ethmoid sinuses. The remaining paranasal sinuses and mastoid air cells are clear. Calvarium: Again seen are at least 2 osseous metastases in the left frontal calvarium. A single metastatic focus is present in the right posterior parietal calvarium. Cervical cord: Partially visualized cervical spinal cord is normal in morphology and signal intensity. IMPRESSION: 1. A small enhancing lesion in the right frontal lobe has decreased in size from 12/27/2016. Intrinsic T1 hyperintensity may represent calcification or trace hemorrhage. No additional enhancing lesions are identified on today's examination. 2. At least 3 calvarial metastatic lesions are again identified and less apparent from prior studies. Electronically signed by: Nishant Farr M.D. 03/28/2017 7:29 PM Dictated Date/Time: 03/28/2017 7:20 PM
== END | disposition home or self-care (01) ==
LOC: C.MRI 18:25
PROVIDERS: ATTEND Internal Medicine Hematology
DX: C34.32 Malignant neoplasm of lower lobe, left bronchus or lung (principal); C79.51 Secondary malignant neoplasm of bone; K59.03 Drug induced constipation; C79.31 Secondary malignant neoplasm of brain

== ENCOUNTER → 2017-04-18 | Outpatient (CLI) | payer OTHER, MEDICARE ==
[~2017-04-18] MED LIST changes: -GADAVIST IV PRN
--- NOTE | 2017-04-18 14:06 | DIAGNOSTIC IMAGING REPORT ---
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 TECHNIQUE: A PET/CT was performed from the skull base through the upper thighs following intravenous injection of 13.36 mCi of F 18 FDG IV. The injection was performed at 11:09 AM on April 18, 2017 and imaging began at 12:13 PM on April 18, 2017. Unenhanced CT was performed for attenuation correction purposes and anatomic localization. COMPARISON STUDY: CT of the chest, abdomen and pelvis November 25, 2016 and MRI the brain March 28, 2017. FINDINGS: Head and neck: No abnormal FDG uptake is identified within the soft tissues of the neck. There is no cervical lymphadenopathy. Chest: A 2.2 cm irregular left upper lobe nodule is similar to exam of November 25, 2016. This has minimal FDG uptake with an SUV max of 1.4. Paramediastinal fibrotic change is noted. No new pulmonary nodules are present. Heart is mildly enlarged. No enlarged axillary, mediastinal or hilar lymph nodes are present. Abdomen and Pelvis: No abdominal or pelvic lymphadenopathy is present. There is a lateral segment hepatic cyst. There is a moderate amount of stool within the colon. There is extensive colonic diverticulosis without evidence for acute diverticulitis. The prostate is moderately enlarged. No abnormal FDG uptake is identified within the abdomen or the pelvis. Musculoskeletal: Innumerable sclerotic metastases are noted to CT of the chest, abdomen and pelvis November 25, 2016. No new skeletal lesions are identified. The degree of sclerosis of many of these lesions have slightly increased. There is essentially no significant FDG uptake within these lesions with the exception of mild FDG uptake within the proximal left clavicle with an SUV max of 3.1. Many of these lesions demonstrate photopenic defects on proportionate study. Note is made of unchanged appearance of a posterior decompression with cervicothoracic fusion. Multiple spinal compression deformities are unchanged since prior CT. Mild uptake within the operative bed is likely postsurgical. Fluid within the operative bed is unchanged. IMPRESSION: 1. No significant change since CT of the chest, abdomen and pelvis November 25, 2016. 2. Redemonstration of innumerable sclerotic metastases which are similar to prior CT. No new lesions identified. Increased sclerosis of several lesions. No significant FDG uptake within the vast majority of these lesions which suggest treated metastases. Mild FDG uptake within a proximal left clavicular metastasis. No new skeletal lesions. 3. No change in the 2.2 cm left upper lobe primary lesion which has minimal FDG uptake which is similar to background soft tissue uptake. Electronically signed by: Neal Ocampo M.D. 04/18/2017 2:05 PM Dictated Date/Time: 04/18/2017 1:09 PM
== END | disposition home or self-care (01) ==
LOC: C.PET 10:43
PROVIDERS: ATTEND Internal Medicine Hematology
DX: C79.51 Secondary malignant neoplasm of bone (principal); C79.31 Secondary malignant neoplasm of brain

== ENCOUNTER → 2017-06-28 | Outpatient (CLI) | payer OTHER, MEDICARE ==
[~2017-06-28] MED LIST changes: +GADAVIST IV PRN
--- NOTE | 2017-06-28 18:36 | DIAGNOSTIC IMAGING REPORT ---
BRAIN COMBO HISTORY: 67 years-old Male LT LUNG MALIGNANT NEOPLASM,BRAIN METASTISIS... Malignant lung cancer follow-up. COMPARISON: Brain MRI 03/28/2017 TECHNIQUE: Multiplanar multisequence MRI of the brain was obtained both with and without the use of 9.1 mL Gadavist FINDINGS: The large [id number] french professor localizer images demonstrate no gross abnormality. There is no restricted diffusion to suggest acute or subacute infarction. The midline structures including the corpus callosum, brainstem, optic chiasm and pituitary and pineal glands appear unremarkable the sagittal T1 series. No cerebellar tonsillar herniation. Degenerative changes are seen within the imaged cervical spine. Mild atrophy. Scattered areas of increased T2/FLAIR signal within the subcortical white matter of the cerebral hemispheres bilaterally suggest chronic microvascular ischemic changes. These appear generally unchanged no acute intracranial hemorrhage, midline shift or abnormal extra-axial collections identified. No hydrocephalus. The major flow voids at the level of the skull base appear patent. Mastoid air cells are clear. Mild mucosal thickening of the ethmoid air cells. Thinning of the bilateral lenses. At least 3 metastatic lesions of the calvarium are redemonstrated and not significantly changed. There is no abnormal intra-axial or extra-axial enhancement identified. There is resolution of the previously described abnormal intra-axial enhancement involving the right frontal lobe which previously measured 5 mm. No new abnormal intra-axial or extra-axial enhancement identified. Previously described intrinsic T1 hyperintensity within the right frontal lobe within the area of abnormal enhancement is less apparent on today's exam. IMPRESSION: 1. No acute intracranial abnormality identified. The previously noted 5 mm enhancing lesion of the right frontal lobe is not identified on today's study. No abnormal intra-axial or extra-axial enhancement identified to suggest progression of metastatic disease. 2. At least 3 calvarial metastatic lesions are again seen. The above report was generated using voice recognition software. It may contain grammatical, syntax or spelling errors. Electronically signed by: Shabbir Jimenez M.D. 06/28/2017 6:35 PM Dictated Date/Time: 06/28/2017 6:22 PM
--- NOTE | 2017-06-29 00:02 | DIAGNOSTIC IMAGING REPORT ---
THORACIC SPINE COMBO HISTORY: 67 years-old Male LT LUNG MALIGNANT NEOPLASM,BRAIN METASTISIS... Follow-up study in a patient with metastatic lung cancer with bony metastasis. COMPARISON: PET CT 04/18/2017, thoracic spine MRI 07/14/2016 TECHNIQUE: Multiplanar multisequence MRI of the thoracic spine was obtained both with and without the use of 9.1 mL Gadavist FINDINGS: Large field view special effects designer localizer images demonstrate no gross abnormality. Large fluid collection with peripheral enhancement within the deep and subcutaneous tissues of the lower cervical and upper thoracic spine at the midline is redemonstrated measuring up to 3.6 x 4.2 x 13.8 cm in AP, transverse and craniocaudal dimension, previously 6.0 x 8.3 x 9.9 cm, not completely imaged in the craniocaudal dimension on comparison suggesting chronic postoperative seroma. Redemonstration of cervicothoracic decompression and fusion with posterior element screws noted at C7 with additional posterior pedicle screws at T2, T6 and T7. No aortic aneurysm identified. No gross abnormality identified within the imaged upper abdomen. Areas of increased signal are noted within the lung bases and left upper lobe, better characterized on comparison PET CT. Unchanged appearance of the posterior left ninth rib suggesting metastatic involvement. Multiple metastatic lesions are again noted throughout the thoracic spine with multiple remote appearing pathologic compression deformities. There is increased sclerosis of the metastatic lesions which are less apparent on today's study. No new metastatic lesions are identified. No new areas of compression deformity identified. Slight retropulsion involving the T4 vertebral body of approximately 3 mm is unchanged with mild central canal narrowing. No significant central canal or foraminal narrowing identified. No new epidural extension of malignant lesions seen. Bone marrow edema seen at several vertebral bodies, notably at the T1-T4 levels. These findings are likely reactive. Axial T1 images are motion degraded. No new areas of suspicious enhancement identified. No cord lesions identified. IMPRESSION: 1. Multiple metastatic lesions throughout the thoracic spine redemonstrated with multiple chronic pathologic compression deformities. The metastatic lesions demonstrate increased sclerosis and are less conspicuous from comparison MRI 07/14/2016 suggesting treated metastasis. No new lesions or new compression deformities are identified. 2. Slight retropulsion with mild central canal narrowing at the T4 level is unchanged. 3. Prior cervicothoracic fusion with posterior decompression. Decreased size of the postoperative fluid collection suggesting chronic seroma within the adjacent deep and subcutaneous tissues. The above report was generated using voice recognition software. It may contain grammatical, syntax or spelling errors. Electronically signed by: Shabbir Jimenez M.D. 06/29/2017 12:00 AM Dictated Date/Time: 06/28/2017 6:40 PM
== END | disposition home or self-care (01) ==
LOC: C.MRI 15:47
PROVIDERS: ATTEND Internal Medicine Hematology
DX: C34.32 Malignant neoplasm of lower lobe, left bronchus or lung (principal); C79.51 Secondary malignant neoplasm of bone; C79.31 Secondary malignant neoplasm of brain

== ENCOUNTER → 2017-07-20 | Outpatient (CLI) | payer OTHER, MEDICARE ==
[~2017-07-20] MED LIST changes: -GADAVIST IV PRN
--- NOTE | 2017-07-20 13:32 | DIAGNOSTIC IMAGING REPORT ---
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 TECHNIQUE: PET/CT was performed from the skull base through the proximal thighs following the intravenous administration of 11.904 mCi of F18-FDG. Blood glucose level 94 mg/dL. The injection was performed at 10:13 AM and imaging began at 11:[address] was performed for attenuation correction purposes and anatomic localization. COMPARISON: 04/18/2017. CT DOSE (mGy.cm): The estimated cumulative dose is 1156.30. FINDINGS: Head and neck: No FDG-avid mass in the visualized portion of the head or neck. No FDG avid or enlarged lymph nodes in the neck. Chest: Normal thyroid and thoracic inlet. Bilateral gynecomastia. No FDG avid axillary, supraclavicular, or mediastinal lymphadenopathy. Evaluation of the dominique on anatomic imaging limited without intravenous contrast. Normal aorta. Normal heart size. Coronary artery calcification. No pericardial or pleural effusion. Redemonstration of the left apical irregular nodule, which measures approximately 1.8 cm in diameter, previously 2.2 cm. This does not demonstrate increased FDG avidity relative to uninvolved lung parenchyma. Paramediastinal reticulation is unchanged from prior and consistent with post radiation change. Minimal dependent changes likely atelectasis. No new FDG avid focal infiltrate or nodule. However, there is an apparent new fissural solid right middle lobe nodule (series 2 image 79), which is not FDG avid and was not evident on prior chest CT from 11/25/2016. Central airways patent. Abdomen and pelvis: Normal physiologic distribution of radiotracer in the gastrointestinal and genitourinary tracts. No FDG avid lymphadenopathy or mass lesion. Bladder wall thickening likely indicates chronic bladder outlet obstruction in the setting of prostatomegaly. Diverticulosis of the sigmoid colon with moderate stool burden throughout the colon. No pericolonic fat infiltration. 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 Atherosclerosis of the normal caliber abdominal aorta. Musculoskeletal: Multifocal mixed lytic and sclerotic lesions throughout the axial skeleton are similar in appearance to prior exam and without increased FDG avidity. Significant sclerosis and destructive change at the head of the left clavicle is unchanged from prior and not FDG avid. Posterior cervical fusion hardware noted at the cervicothoracic spine as well as additional thoracic posterior fusion hardware noted more inferiorly. Compression deformity of L1 and to a lesser extent T10 is similar to prior. IMPRESSION: 1. Follow-up PET/CT demonstrates no evidence of FDG avid recurrent disease or lymphadenopathy. Multifocal axial skeletal osseous metastatic disease without significant FDG avidity. This likely indicates posttreatment change. 2. Left apical nodule consistent with known primary malignancy without significant FDG avidity consistent with posttreatment change. Associated post radiation changes in the lungs. 3. Apparent development of a fissural right middle lobe nodule, which was not present on prior chest CT from 11/25/2016. Attention on follow-up. The location suggests a benign etiology, possibly unencapsulated pulmonary lymphoid tissue. 4. Diverticulosis. Electronically signed by: Dorian Byers M.D. 07/20/2017 1:31 PM Dictated Date/Time: 07/20/2017 1:15 PM
== END | disposition home or self-care (01) ==
LOC: C.PET 09:53
PROVIDERS: ATTEND Internal Medicine Hematology
DX: C34.32 Malignant neoplasm of lower lobe, left bronchus or lung (principal); C79.51 Secondary malignant neoplasm of bone; C79.31 Secondary malignant neoplasm of brain

== ENCOUNTER → 2017-10-17 | Outpatient (CLI) | payer OTHER, MEDICARE ==
[~2017-10-17] MED LIST changes: +OXYC-90 PO; -OXYC1TAB3 PO; -SIMV80TA5 PO; +SIMV80TA7 PO
--- NOTE | 2017-10-18 07:08 | DIAGNOSTIC IMAGING REPORT ---
PET/CT SKULL-THIGH CLINICAL HISTORY: NON SMALL CELL LUNG COMPARISON STUDY: July 20, 2017 FINDINGS: The patient was injected with 9.8 mCi of F 18 labeled FDG. Following the standard induction phase, PET/CT scanning was performed from the skull base the upper thigh region. Activity within the neck is felt to be physiological. Within the chest, there is a stable 2 cm left apical pulmonary nodule. This demonstrates no increased FDG activity. There are paramediastinal fibrotic changes consistent with prior ration therapy. There is a new left upper lobe perihilar focus of increased FDG activity with an SUV maximum of 4.4. This fuses to a 1 cm left upper lobe pulmonary nodule versus hilar lymph node. Activity within the thorax is otherwise unremarkable. The previously described right middle lobe perifissural nodule is not redemonstrated on the current study. Within the abdomen and pelvis, there is physiologic urinary tract and bowel activity. There is no pathologic hepatic activity. There is no pathologic alexandrea activity. Adrenal activity is likely physiologic. There are innumerable skeletal metastasis, essentially unchanged from the preceding examination. These are not FDG avid. IMPRESSION: 1. Stable 2 cm left upper lobe pulmonary nodule. This remains non-FDG avid 2. Stable widespread skeletal metastasis. These remain non-FDG avid 3. New left upper lobe hilar/perihilar focus of increased FDG activity with SUV maximum of 4.4. This appears to fuse to a 1 cm left upper lobe perihilar nodule versus perihilar lymph node. This could represent disease recurrence, or represent a focal inflammatory process. Close follow-up will be necessary. Electronically signed by: Tc Alvarez M.D. 10/18/2017 7:07 AM Dictated Date/Time: 10/18/2017 6:53 AM
== END | disposition home or self-care (01) ==
LOC: C.PET 12:11
PROVIDERS: ATTEND Internal Medicine Hematology
DX: C34.32 Malignant neoplasm of lower lobe, left bronchus or lung (principal); C79.51 Secondary malignant neoplasm of bone